=== PATIENT | female | born 1935 | race Hispanic/Latino ===

== ENCOUNTER 2018-03-10 18:33 | Emergency (ER) | payer MEDICARE ==
[2018-03-10 20:15] VITALS: RESP 18
[2018-03-10] MEDS ORDERED: Lidocaine/Prilocaine CREAM 5GM TP ONE ×2 (20:46→21:20)
[2018-03-10 21:25] LABS: BASO % 0.8 % (0.0-2.0); EOS # 0.1 K/uL (0.0-0.7); EOS % 2.1 % (0.0-4.0); HEMOGLOBIN 12.2 g/dL (12.0-16.0); LYMPH # 1.7 K/uL (1.0-4.3); LYMPH % 25.5 % (20.0-40.0); MEAN CELL VOLUME 84.3 fl (81.0-99.0); MEAN CORPUSCULAR HEMOGLOBIN 27.5 pg (27.0-31.0); MEAN CORPUSCULAR HGB CONC 32.6 g/dL (33.0-37.0); MEAN PLATELET VOLUME 9.9 fl (7.2-11.7); MONO # 0.8 K/uL (0.0-0.8); NEUT # 3.9 K/uL (1.8-7.0); NEUT % 59.6 % (50.0-75.0); RBC 4.46 Mil/uL (3.80-5.20); RED CELL DISTRIBUTION WIDTH 15.7 % (11.5-14.5); WHITE BLOOD COUNT 6.5 K/uL (4.8-10.8)
[2018-03-10 21:45] LABS: ALB/GLOB RATIO 1.1 (1.0-2.1); ALBUMIN 4.1 g/dL (3.5-5.0); ALT/SGPT 29 U/L (9-52); AST/SGOT 24 U/L (14-36); BLOOD UREA NITROGEN 17 mg/dl (7-17); CALCIUM 9.1 mg/dL (8.4-10.2); GFR AFRICAN-AMERICAN > 60; GFR NON-AFRICAN AMERICAN > 60
[2018-03-10 21:52] LABS: B-TYPE NATRIURETIC PEPTIDE 367 pg/ml (0-900)
[2018-03-10 22:02] LABS: PARTIAL THROMBOPLASTIN TIME 29.1 Seconds (25.6-37.1); PROTHROMBIN TIME 11.2 Seconds (9.8-13.1)
[2018-03-10 22:20] LABS: SQUAMOUS EPITHIAL < 1 /hpf (0-5); URINE BACTERIA RARE (<OCC); URINE BILIRUBIN NEGATIVE (NEGATIVE); URINE BLOOD LARGE (NEGATIVE); URINE CLARITY TURBID (Clear); URINE COLOR YELLOW (YELLOW); URINE GLUCOSE (UA) NEG (Normal); URINE LEUKOCYTE ESTERASE LARGE Leu/uL (Negative); URINE PROTEIN 100 mg/dL (NEGATIVE); URINE UROBILINOGEN 0.2-1.0 mg/dL (0.2-1.0)
--- NOTE | 2018-03-10 22:24 | ED PDOC ---
Lower Extremity Pain/Injury Time Seen by Provider: 03/10/18 20:18 Chief Complaint (Nursing): Abnormal Skin Integrity Chief Complaint (Provider): Leg laceration History Per: Patient History/Exam Limitations: no limitations Current Symptoms Are (Timing): Still Present Additional History Per: Family (son) Additional Complaint(s): 82 year old female, with past medical history of HTN, presented to ED with laceration. Patient reported that she was walking too close to her cat cage which had a wire sticking out and cut her right leg. In addition to this, son reports that for the last 10 days, patient has had intermittent bleeding in the left nostril for unknown reason. She has also been taking her husbands blood pressure medications for the past year because her PCP . All history was provided by son. PCP: none provided Past Medical History Reviewed: Historical Data, Nursing Documentation, Vital Signs Vital Signs: Last Vital Signs Temp 97.5 F L 03/10/18 19:39 Pulse 71 03/10/18 20:14 Resp 18 03/10/18 20:14 BP 153/85 H 03/10/18 20:14 Pulse Ox 97 03/10/18 19:39 - Medical History PMH: Asthma, HTN, Hypercholesterolemia Denies: Arthritis, CHF, COPD, Hypothyroidism, Chronic Kidney Disease, Rheumatoid Arthritis - Surgical History Surgical History: Appendectomy Denies: CABG - Family History Family History: States: Unknown Family Hx - Social History Current smoker - smoking cessation education provided: No Alcohol: None Drugs: Denies - Home Medications Home Medications: Ambulatory Orders Medication Instructions Recorded Carvedilol [Coreg] 3.125 mg PO BID 03/18/16 Fluticasone/Salmeterol 250/50 1 puff INH BID 03/18/16 [Advair Diskus 250/50] Montelukast Sodium [Singulair] 10 mg PO DAILY 03/18/16 Ranitidine HCl [Zantac] 150 mg PO DAILY 03/18/16 Acetaminophen [Tylenol 325mg tab] 650 mg PO Q6 PRN #0 tab 03/20/16 Amoxicillin/Clavulanate [Augmentin 1 tab PO BID #10 tab 03/10/18 875 MG-125 MG] Carvedilol [Coreg] 3.125 mg PO BID #30 tab 03/10/18 Montelukast [Singulair] 10 mg PO DAILY #30 tab 03/10/18 Nitrofurantoin Macrocrystals 1 cap PO BID #14 cap 03/10/18 [Macrobid] - Allergies Allergies/Adverse Reactions: Allergies Allergy/AdvReac Type Severity Reaction Status Date / Time No Known Allergies Allergy Verified 03/10/18 19:39 Review of Systems ROS Statement: Except As Marked, All Systems Reviewed And Found Negative ENT: Positive for: Nose Discharge (Nose bleed) Musculoskeletal: Positive for: Leg Pain (Leg laceration) Physical Exam - Reviewed Nursing Documentation Reviewed: Yes Vital Signs Reviewed: Yes - Physical Exam Appears: Positive for: Non-toxic, No Acute Distress (slim petite habitus) Skin: Positive for: Warm, Dry, Pallor Eye Exam: Positive for: EOMI, PERRL ENT: Negative for: Sinus Pain/Drainage (active bleeding), Other (bloody cotton ball in left nare, erythematous turbinates, more dried blood) Neck: Positive for: Painless ROM, Supple Cardiovascular/Chest: Positive for: Regular Rate, Rhythm. Negative for: Murmur Respiratory: Positive for: Normal Breath Sounds. Negative for: Wheezing, Respiratory Distress Gastrointestinal/Abdominal: Positive for: Soft. Negative for: Tenderness Back: Positive for: Normal Inspection. Negative for: Muscle Spasm Extremity: Positive for: Tenderness (tenderness to palpation to RLE anterior tibia area near wound), Deformity (irregular flap skin tear, flap necrosis to RLE), Other (base of wound is moist, no erythema surrounding RLE wound). Negative for: Swelling (active bleeding, surrounding redness) Lymphatic: Negative for: Adenopathy Neurologic/Psych: Positive for: Alert. Negative for: Motor/Sensory Deficits Comments: RIGHT lower extremity wound, lower anterior: ~5cm flap wound, flap with ecchymosis and very this and friable at edges, subcutaneous fat visualized with good blood flow. - Laboratory Results Result Diagrams: 03/10/18 21:10 03/10/18 21:10 - ECG O2 Sat by Pulse Oximetry: 97 (RA) Pulse Ox Interpretation: Normal Medical Decision Making Medical Decision Making: Initial Impression: RLE skin avulsion/laceration, HTN, left epistaxis Initial Plan: ECG ED Urine dipstick X-ray Lidocaine 1 applic TP once Urine culture Urinalysis Labs c/w UTI and possible hypothyroid. Laceration repaired. Scribe Attestation: Documented by Cole Aldridge acting as a scribe for Madie Raya MD. Provider Scribe Attestation: All medical record entries made by the Scribe were at my direction and personally dictated by me. I have reviewed the chart and agree that the record accurately reflects my personal performance of the history, physical exam, medical decision making, and the department course for this patient. I have also personally directed, reviewed, and agree with the discharge instructions and disposition. Procedures - Laceration/Wound Repair Right Anterior Wound Length (cm): 5 (RIGHT anterior lower extremity) Wound's Depth, Shape: superficial, flap, contused tissue Wound Explored: clean Irrigated w/ Saline (ccs): 250 Betadine Prep?: Yes Anesthesia: 1% Lidocaine (after EMLA) Volume Anesthetic (ccs): 2 Wound Repaired With: Sutures, Steri-strips Suture Size/Type: 4:0, proline Number of Sutures: 5 Wound Complexity: Simple Disposition - Clinical Impression Clinical Impression: HTN (hypertension), Laceration of leg, High serum thyroid stimulating hormone ( TSH), UTI (urinary tract infection) Counseled Patient/Family Regarding: Studies Performed, Diagnosis, Need For Followup, Rx Given - Disposition Referrals: Kayden Lehman MD [Staff Provider] - (WOUND CHECK IN 48 HOURS SUTURE REMOVAL IN 7-10 DAYS ALSO FOLLOW UP WITH DR LEHMAN FOR HYPERTENSION MEDICATION AND FURTHER EVALUATION OF POSSIBLE HYPOTHYROID.) Disposition: Routine/Home Disposition Time: 23:26 Condition: IMPROVED Prescriptions: Amoxicillin/Clavulanate [Augmentin 875 MG-125 MG] 1 tab PO BID #10 tab Carvedilol [Coreg] 3.125 mg PO BID #30 tab Montelukast [Singulair] 10 mg PO DAILY #30 tab Nitrofurantoin Macrocrystals [Macrobid] 1 cap PO BID #14 cap Instructions: High Blood Pressure (DC), Laceration Repair, Urinary Tract Infection, Adult (DC)
[2018-03-10] MEDS ORDERED: Lidocaine 1% 20 MG/2 ML PF AMP ONE (22:55)
[2018-03-10 23:54] VITALS: BP 153/85; PULSE 71; TEMP 97.8; O2SAT 97
--- NOTE | 2018-03-11 09:54 | RAD ---
HISTORY: hypertension COMPARISON: Chest radiographs 03/19/2016. TECHNIQUE: Chest PA and lateral FINDINGS: LUNGS: No definite acute infiltrate is appreciate pulmonary fibrotic changes appear bilateral and diffuse once again and are not significantly changed. Over left of costochondral calcifications is again seen at the inferior right lung zone with fibrotic lung. Hyperinflation suggests COPD once again. Yes PLEURA: No significant pleural effusion identified. No pneumothorax apparent. Right greater than left apical pleural thickening again identified. Fibrotic changes blunt the right costophrenic sulcus. CARDIOVASCULAR: Stable cardiomediastinal silhouette. OSSEOUS STRUCTURES: No significant abnormalities. VISUALIZED UPPER ABDOMEN: Normal. OTHER FINDINGS: None. IMPRESSION: COPD with pulmonary fibrotic changes reiterated. No acute infiltrate or pleural effusion is evident bilaterally. Fibrotic changes about the right costophrenic sulcus.
--- NOTE | 2018-03-14 12:17 | CARD ---
APPROVED REPORT EKG Measurement Heart [id number] <Conclusion> Normal sinus rhythm Minimal voltage criteria for LVH, may be normal variant Borderline ECG
== END 2018-03-10 23:55 | disposition home or self-care (01) ==
LOC: H.ER 18:33
DX: S81.811A Laceration without foreign body, right lower leg, initial encounter (principal); N39.0 Urinary tract infection, site not specified; R94.6 Abnormal results of thyroid function studies; I10 Essential (primary) hypertension; J44.9 Chronic obstructive pulmonary disease, unspecified; W22.8XXA Striking against or struck by other objects, initial encounter

== ENCOUNTER 2018-07-21 19:19 | Inpatient (IN) | payer MEDICARE ==
[2018-07-21] MEDS ORDERED: Iohexol 240 (50 ml) PO STA (19:55)
[2018-07-21] MEDS ORDERED: Sodium Chloride 0.9% 500 ML IV STA (19:56)
--- NOTE | 2018-07-21 21:07 | ED PDOC ---
HPI: Abdomen Time Seen by Provider: 07/21/18 19:40 Chief Complaint (Nursing): Abdominal Pain Chief Complaint (Provider): Abdominal Pain History Per: Patient History/Exam Limitations: no limitations Onset/Duration Of Symptoms: Days (x7) Current Symptoms Are (Timing): Still Present Additional Complaint(s): 83 y/o female with a PMHx of HTN and asthma presents to the ED for evaluation of right sided abdominal pain, ongoing for one week. Patient reports pain has been worsening since onset and is associated with lack of appetite, poor PO intake, dysuria, frequency, nausea and one episode of shaking chills today. Denies hematuria, vomiting, fever, diarrhea and constipation. PMD: Kayden Lehman Past Medical History Reviewed: Historical Data, Nursing Documentation, Vital Signs Vital Signs: Last Vital Signs Temp 97.8 F 07/25/18 09:00 Pulse 75 07/25/18 09:03 Resp 18 07/25/18 09:00 BP 155/74 H 07/25/18 09:03 Pulse Ox 97 07/25/18 09:00 - Medical History PMH: Asthma, HTN, Hypercholesterolemia Denies: Arthritis, CHF, COPD, Hypothyroidism, Chronic Kidney Disease, Rheumatoid Arthritis - Surgical History Surgical History: Appendectomy Denies: CABG - Family History Family History: States: No Known Family Hx - Social History Current smoker - smoking cessation education provided: No Alcohol: None Drugs: Denies - Home Medications Home Medications: Ambulatory Orders Medication Instructions Recorded Albuterol HFA [Ventolin HFA 90 2 inh INH PRN PRN 07/22/18 mcg/actuation (8 g)] Carvedilol [Coreg] 3.125 mg PO BID 07/22/18 Loratadine [Claritin] 10 mg PO DIALW PRN 07/22/18 Montelukast [Singulair] 10 mg PO HS 07/22/18 Albuterol/Ipratropium [Duoneb 3 3 ml INH RQ6 PRN neb 07/25/18 mg/0.5 mg (3 ml) UD] cefTRIAXone 1 gm [Rocephin 1 gram 1 gm IVPB DAILY 8 Days #8 bag 07/25/18 IVPB] - Allergies Allergies/Adverse Reactions: Allergies Allergy/AdvReac Type Severity Reaction Status Date / Time No Known Allergies Allergy Verified 03/10/18 19:39 Review of Systems ROS Statement: Except As Marked, All Systems Reviewed And Found Negative Constitutional: Positive for: Chills (shaking). Negative for: Fever Gastrointestinal: Positive for: Nausea, Abdominal Pain, Other (lack of appetite , poor PO intake). Negative for: Vomiting, Diarrhea, Constipation Genitourinary Female: Positive for: Dysuria, Frequency. Negative for: Hematuria Physical Exam - Reviewed Nursing Documentation Reviewed: Yes Vital Signs Reviewed: Yes - Physical Exam Appears: Positive for: Uncomfortable (and tired), In Acute Distress (painful) Head Exam: Positive for: ATRAUMATIC, NORMOCEPHALIC Skin: Positive for: Warm, Dry Eye Exam: Positive for: EOMI, PERRL ENT: Positive for: Other (Dry Mucous Membranes) Neck: Positive for: Painless ROM, Supple Cardiovascular/Chest: Positive for: Tachycardia Respiratory: Positive for: Normal Breath Sounds. Negative for: Respiratory Distress Gastrointestinal/Abdominal: Positive for: Bowel Sounds (Hyperactive), Tenderness (in the RUQ, RLQ and Epigastric area), Guarding (Voluntary guarding in the right abdomen ). Negative for: Mass, Rebound Back: Positive for: Normal Inspection. Negative for: Decreased ROM Extremity: Positive for: Normal ROM. Negative for: Deformity Lymphatic: Negative for: Adenopathy Neurologic/Psych: Positive for: Alert, Oriented (x2) - Laboratory Results Result Diagrams: 07/23/18 08:19 07/23/18 08:19 - ECG O2 Sat by Pulse Oximetry: 99 (RA) Pulse Ox Interpretation: Normal Medical Decision Making Medical Decision Making: Time: 2037 Impression: Abdominal Pain Differentials include but not limited to gastritis, hepatitis, pancreatitis, cholecystitis and appendicitis Plan: -- EKG -- Glucose, POC -- Sodium Chloride IV 500 mls/hr -- Iohexol 50 ml PO -- Zofran Inj 4 mg IVP -- Blood Culture -- Urine Culture -- IV Insertion -- ED Rectal Temp -- Glucose, Blood, POC -- Urinalysis -- US Abdomen Limited Time: 2099 Plan: -- VBG -- EKG -- CMP -- Free T4 -- Lipase -- Magnesium -- Phosphorus -- T3 -- TSH -- CBC with differentials -- PTT -- Prothrombin Time 2350 Abdomen US FINDINGS: Liver: Diffusely increased echogenicity. No mass. No intrahepatic bile duct dilation. Gallbladder: Contracted. No gallstones. Negative sonographic Merino's sign Common bile duct: Unremarkable as visualized. No stones. No dilation. Measures 0.3 cm. Pancreas: Unremarkable as visualized. Right kidney: Unremarkable. No stones. No solid mass. No hydronephrosis. IMPRESSION: Sonographic evidence of diffuse hepatic steatosis. Otherwise no acute findings. Dictated and Authenticated by: Al Herrera MD 07/21/2018 11:50 PM Eastern Time ([place] & [place]) [address] Mireles by me pending abd/pelvis CT and reevaluation. Scribe Attestation: Documented by Georgette Bravo acting as a scribe for Yoselyn Clark MD. Provider Scribe Attestation: All medical record entries made by the Scribe were at my direction and personally dictated by me. I have reviewed the chart and agree that the record accurately reflects my personal performance of the history, physical exam, medical decision making, and the department course for this patient. I have also personally directed, reviewed, and agree with the discharge instructions and disposition. Disposition - Clinical Impression Clinical Impression: Abdominal pain - Disposition Disposition: Transfer of Care Disposition Time: 00:00 Condition: FAIR
[2018-07-21 21:09] LABS: BASO # 0.1 K/uL (0.0-0.2); BASO % 0.3 % (0.0-2.0); EOS % 0.2 % (0.0-4.0); HEMOGLOBIN 11.1 g/dL (12.0-16.0); LYMPH # 0.6 K/uL (1.0-4.3); LYMPH % 2.3 % (20.0-40.0); MEAN CELL VOLUME 81.7 fl (81.0-99.0); MEAN CORPUSCULAR HEMOGLOBIN 26.5 pg (27.0-31.0); MEAN CORPUSCULAR HGB CONC 32.4 g/dL (33.0-37.0); MEAN PLATELET VOLUME 8.7 fl (7.2-11.7); MONO # 1.5 K/uL (0.0-0.8); MONO % 5.9 % (0.0-10.0); NEUT # 23.3 K/uL (1.8-7.0); NEUT % 91.3 % (50.0-75.0); PLATELET COUNT 438 K/uL (130-400); RBC 4.18 Mil/uL (3.80-5.20); RED CELL DISTRIBUTION WIDTH 16.9 % (11.5-14.5); WHITE BLOOD COUNT 25.6 K/uL (4.8-10.8)
[2018-07-21 21:11] LABS: VENOUS BLOOD GAS BASE EXCESS 6.1 mmol/L (0.0-2.0); VENOUS BLOOD GAS PCO2 46 mmHg (40-60); VENOUS BLOOD GAS PO2 32 mm/Hg (30-55); VENOUS BLOOD PH 7.44 (7.32-7.43)
[2018-07-21 21:16] LABS: SQUAMOUS EPITHIAL 1 /hpf (0-5); URINE BACTERIA MOD (<OCC); URINE BILIRUBIN NEGATIVE (NEGATIVE); URINE BLOOD SMALL (NEGATIVE); URINE CLARITY CLOUDY (Clear); URINE COLOR AMBER (YELLOW); URINE GLUCOSE (UA) NEG (Normal); URINE PROTEIN 100 mg/dL (NEGATIVE)
[2018-07-21 21:18] LABS: INR 1.2
[2018-07-21 21:19] LABS: ALB/GLOB RATIO 0.8 (1.0-2.1); ALBUMIN 3.4 g/dL (3.5-5.0); ALT/SGPT 40 U/L (9-52); AST/SGOT 45 U/L (14-36); BLOOD UREA NITROGEN 19 mg/dl (7-17); CALCIUM 8.5 mg/dL (8.4-10.2); GFR NON-AFRICAN AMERICAN > 60; LIPASE 37 U/L (23-300)
[2018-07-21 21:20] LABS: PARTIAL THROMBOPLASTIN TIME 25.1 Seconds (25.6-37.1)
[2018-07-21 21:22] LABS: URINE LEUKOCYTE ESTERASE LARGE Leu/uL (Negative)
[2018-07-21] MEDS ORDERED: Potassium & Sodium Phosphate PO STA (21:44)
[2018-07-21] MEDS ORDERED: cefTRIAXone (Rocephin) 1 gm Inj ONE (21:55)
[2018-07-21 22:07] LABS: LYMPHOCYTE 2 % (20-50); MONOCYTE 5 % (0-10); NEUTROPHIL 93 % (42-75); PLATELET ESTIMATE INCREASED (NORMAL); TOTAL CELLS COUNTED 100
[2018-07-21 22:08] LABS: ANISOCYTOSIS SLIGHT; HYPOCHROMIC SLIGHT
[2018-07-21 23:01] LABS: T3 1.17 nmol/L (1.49-2.60)
--- NOTE | 2018-07-22 00:25 | ED PDOC ---
- Laboratory Results Result Diagrams: 07/21/18 21:00 07/21/18 21:00 - ECG O2 Sat by Pulse Oximetry: 99 (RA) Pulse Ox Interpretation: Normal Medical Decision Making Medical Decision Makin Patient endorsed to me by Dr. Clark pending abd/pelvis CT and reevaluation. 0149 Abd/Pelvis CT FINDINGS: Lung bases: Prominent interstitial markings in the lung bases bilaterally. Right lung base more nodular opacities and partially visualized consolidation in the inferior aspect of the right middle lobe may be infectious or inflammatory process, either acute or chronic. ABDOMEN: Liver: Unremarkable. No mass. Gallbladder and bile ducts: Unremarkable. No calcified stones. No ductal dilation. Pancreas: Unremarkable. No mass. No ductal dilation. Spleen: Unremarkable. No splenomegaly. Adrenals: Unremarkable. No mass. Kidneys and ureters: Right renal pelvis 1.9 cm calcification with moderate hydronephrosis. Stomach and bowel: Diverticulosis is most pronounced in the sigmoid colon. No obstruction. No mucosal thickening. PELVIS: Appendix: No findings to suggest acute appendicitis. Bladder: Unremarkable. No mass. Reproductive: Unremarkable as visualized. ABDOMEN and PELVIS: Intraperitoneal space: Unremarkable. No free air. No significant fluid collection. Bones/joints: No acute fracture. No dislocation. Soft tissues: Left fat-containing inguinal hernia. Vasculature: Moderate atherosclerotic calcifications are present in the abdominal aorta. No abdominal aortic aneurysm. Lymph nodes: Unremarkable. No enlarged lymph nodes. Other findings: Right pelvic 4.6 x 3.7 x 5.4 cm cyst is probably benign. IMPRESSION: 1. Right renal pelvis 1.9 cm calcification with moderate hydronephrosis. A mild obstructive process is not excluded. 2. Right pelvic 4.6 x 3.7 x 5.4 cm cyst is probably benign. 3. Prominent interstitial markings in the lung bases bilaterally. Right lung base more nodular opacities and partially visualized consolidation in the inferior aspect of the right middle lobe may be infectious or inflammatory process, either acute or chronic. Dictated and Authenticated by: Al Herrera MD 07/22/2018 1:49 AM Eastern Time ([place] & [place]) 0200 Patient will be admitted for further treatment for acute paranephritis. Case referred to Dr. Lehman, patient's PMD. Scribe Attestation: Documented by Yocasta Haines, acting as a scribe for Bladimir Mireles MD. Provider Scribe Attestation: All medical record entries made by the Scribe were at my direction and personally dictated by me. I have reviewed the chart and agree that the record accurately reflects my personal performance of the history, physical exam, medical decision making, and the department course for this patient. I have also personally directed, reviewed, and agree with the discharge instructions and disposition. Disposition Discussed With : Kayden Lehman - Clinical Impression Clinical Impression: Pyelonephritis - POA Present On Arrival: None - Disposition Disposition: Admitted as In-Patient Disposition Time: 01:45 Condition: FAIR
[2018-07-22] MEDS ORDERED: Albuterol HFA 90 mcg/actuation (8 g) INH PRN (06:04)
[2018-07-22 06:42] LABS: BASO # 0.1 K/uL (0.0-0.2); BASO % 0.3 % (0.0-2.0); EOS # 0.1 K/uL (0.0-0.7); EOS % 0.6 % (0.0-4.0); HEMOGLOBIN 10.6 g/dL (12.0-16.0); LYMPH # 1.6 K/uL (1.0-4.3); LYMPH % 8.7 % (20.0-40.0); MEAN CELL VOLUME 81.3 fl (81.0-99.0); MEAN CORPUSCULAR HEMOGLOBIN 26.4 pg (27.0-31.0); MEAN CORPUSCULAR HGB CONC 32.5 g/dL (33.0-37.0); MEAN PLATELET VOLUME 8.3 fl (7.2-11.7); MONO # 1.6 K/uL (0.0-0.8); MONO % 8.6 % (0.0-10.0); NEUT # 14.9 K/uL (1.8-7.0); NEUT % 81.8 % (50.0-75.0); NRBC % 0.1 % (0.0-0.0); RBC 4.02 Mil/uL (3.80-5.20); RED CELL DISTRIBUTION WIDTH 16.9 % (11.5-14.5); WHITE BLOOD COUNT 18.2 K/uL (4.8-10.8)
[2018-07-22] MEDS: Dextrose 5%/0.9% NS 1,000 ML IV SCH ×3 (06:44→21:30)
[2018-07-22 07:15] LABS: BLOOD UREA NITROGEN 14 mg/dl (7-17); CALCIUM 7.9 mg/dL (8.4-10.2); GFR NON-AFRICAN AMERICAN > 60
[2018-07-22] MEDS: Enoxaparin 40 mg Syringe SC SCH (09:00)
--- NOTE | 2018-07-22 09:09 | CARD ---
APPROVED REPORT Date of service: 07/21/2018 <Conclusion> Normal sinus rhythm with sinus arrhythmia Possible Left atrial enlargement Borderline ECG
[2018-07-22] MEDS ORDERED: Potassium Chloride 20 mEq ER Tab PO ONE (09:13)
--- NOTE | 2018-07-22 09:42 | US ---
Date of service: 07/21/2018 HISTORY: RUQ pain COMPARISON: None. TECHNIQUE: Grayscale imaging was performed. FINDINGS: LIVER: Measures 12.1 cm in length. Normal echogenicity of the liver parenchyma. No mass. No intrahepatic bile duct dilatation. GALLBLADDER: Unremarkable. No gallstones. COMMON BILE DUCT: Measures 4.0 mm. No stones. No dilatation. PANCREAS: Unremarkable as visualized. No mass. No ductal dilatation. RIGHT KIDNEY: Measures 10.5 cm in length. Normal echogenicity. There is a 2.0 x 2.2 cm stone in the renal pelvis and mild fullness in the collecting system no mass, or hydronephrosis. AORTA: No aneurysmal dilatation. IVC: Unremarkable. OTHER FINDINGS: None . IMPRESSION: 2.2 cm stone in the right renal pelvis and mild fullness in the collecting system. No cholelithiasis or biliary dilatation.
[2018-07-22 10:03] LABS: ALB/GLOB RATIO 0.8 (1.0-2.1); ALBUMIN 2.7 g/dL (3.5-5.0); ALT/SGPT 32 U/L (9-52); AMYLASE 56 U/L (30-110); AST/SGOT 62 U/L (14-36); BILIRUBIN,DIRECT 0.2 mg/ml (0.0-0.4); LIPASE 12 U/L (23-300)
[2018-07-22 10:07] LABS: INR 1.2; PROTHROMBIN TIME 12.9 Seconds (9.8-13.1)
[2018-07-22 10:10] LABS: PARTIAL THROMBOPLASTIN TIME 32.5 Seconds (25.6-37.1)
--- NOTE | 2018-07-22 12:39 | CT ---
PROCEDURE: CT Abdomen and Pelvis without IV contrast. HISTORY: abd pain COMPARISON: Limited abdominal ultrasound performed 07/21/18 TECHNIQUE: Contiguous axial images of the abdomen and pelvis. Oral contrast was administered. No IV contrast given. Coronal and Sagittal reformats generated and reviewed. Radiation dose: Total exam DLP = 186.48 mGy-cm. This CT exam was performed using one or more of the following dose reduction techniques: Automated exposure control, adjustment of the mA and/or kV according to patient size, and/or use of iterative reconstruction technique. FINDINGS: There is limited evaluation of the solid organs without the administration of IV contrast. LOWER THORAX: Bibasilar atelectasis. Prominent interstitial markings noted bilaterally. Nodular opacities/consolidation involving the inferior aspect right middle lobe. Small pericardial effusion. Partially imaged cardiomegaly. Aortic valve calcifications, partially imaged. LIVER: Unremarkable unenhanced appearance. GALLBLADDER AND BILE DUCTS: Unremarkable unenhanced appearance. PANCREAS: Atrophy. SPLEEN: Unremarkable unenhanced appearance. ADRENALS: Unremarkable unenhanced appearance. KIDNEYS AND URETERS: Moderate right-sided hydronephrosis. 0.8 x 2.1 cm calcification, right renal pelvis. No left-sided hydronephrosis or obstructing renal calculus. BLADDER: The urinary bladder appears unremarkable. REPRODUCTIVE: Uterus is present. APPENDIX: The appendix appears within normal limits of caliber. No secondary signs of acute appendicitis. BOWEL: The stomach is nondistended. The bowel loops appear within normal limits of caliber without evidence of intestinal obstruction. Diverticulosis most significantly involving the sigmoid colon. Wall thickening of small bowel loop/ileum; correlate clinically for possibility of enteritis. PERITONEUM: No significant free fluid. No definite free air. LYMPH NODES: No bulky lymphadenopathy identified. VASCULATURE: Moderate atherosclerotic calcifications of the aorta and branches. No aortic aneurysm. BONES: Degenerative changes. Osseous demineralization. OTHER FINDINGS: Large fat containing left inguinal hernia. 4.6 x 3.7 x 5.4 cm right pelvic cyst. IMPRESSION: 4.6 x 3.7 x 5.4 cm right pelvic cyst. Finding may be ovarian in etiology. Recommend further evaluation with pelvic ultrasound. Moderate right-sided hydronephrosis and 0.8 x 2.1 cm calcification, right renal pelvis. Wall thickening of small bowel loop/ileum; correlate clinically for possibility of enteritis. Bibasilar atelectasis. Prominent interstitial markings noted bilaterally. Nodular opacities/consolidation involving the inferior aspect right middle lobe. Small pericardial effusion. Partially imaged cardiomegaly. Preliminary impression was provided by virtual radiologic. Study marked for PA review.
--- NOTE | 2018-07-22 13:55 | CP.PCM.HP ---
History of Present Illness - History of Present Illness History of Present Illness: 83 y/o female with a PMHx of HTN and asthma presents to the ED with c/o of right sided abdominal pain x 1 week. Patient reports pain has been worsening since onset and is associated with lack of appetite, poor PO intake, dysuria, frequency, nausea and one episode of shaking chills today. Denies hematuria, vomiting, fever, diarrhea and constipation. C/O loss of weight secondary to poor appetite and pain in the abdomen. Present on Admission - Present on Admission Any Indicators Present on Admission: No Review of Systems - Constitutional Constitutional: Malaise, Weight Loss, Weakness - EENT Eyes: As Per HPI - Cardiovascular Cardiovascular: As Per HPI - Respiratory Respiratory: As Per HPI - Genitourinary Genitourinary: Dysuria - Musculoskeletal Musculoskeletal: As Per HPI - Neurological Neurological: As Per HPI - Psychiatric Psychiatric: As Per HPI - Endocrine Endocrine: As Per HPI Past Patient History - Past Medical History & Family History Past Medical History?: Yes - Past Social History Smoking Status: Never Smoked - CARDIAC Hx Cardiac Disorders: Yes Hx Congestive Heart Failure: No Hx Hypercholesterolemia: Yes Hx Hypertension: Yes - PULMONARY Hx Respiratory Disorders: Yes Hx Asthma: Yes Hx Chronic Obstructive Pulmonary Disease (COPD): No - NEUROLOGICAL Hx Neurological Disorder: No HX Cerebrovascular Accident: No - HEENT Hx HEENT Problems: Yes Hx Cataracts: Yes Hx Deafness: Yes - RENAL Hx Chronic Kidney Disease: No Hx Dialysis: No Hx Kidney Stones: No Hx Neurogenic Bladder: No Hx Pyelonephritis: No Hx Renal (Kidney) Cancer: No Hx Renal Failure: No - ENDOCRINE/METABOLIC Hx Endocrine Disorders: No Hx Adrenal Cancer: No Hx Diabetes Insipidus: No Hx Diabetes Mellitus Type 1: No Hx Diabetes Mellitus Type 2: No Hx Hyperthyroidism: No Hx Hypothyroidism: No Hx Systemic Lupus Erythematosus: No - HEMATOLOGICAL/ONCOLOGICAL Hx Blood Disorders: No Hx AIDS: No Hx Hepatitis C: No Hx Human Immunodeficiency Virus (HIV): No - INTEGUMENTARY Hx Dermatological Problems: No - MUSCULOSKELETAL/RHEUMATOLOGICAL Hx Musculoskeletal Disorders: Yes Hx Falls: Yes (2 yrs ago) Hx Fractures: Yes (sacral fx 2 yrs ago) - GASTROINTESTINAL Hx Gastrointestinal Disorders: Yes Hx Gastroesophageal Reflux: Yes - GENITOURINARY/GYNECOLOGICAL Hx Genitourinary Disorders: No - PSYCHIATRIC Hx Psychophysiologic Disorder: No Hx Substance Use: No - SURGICAL HISTORY Hx Surgeries: Yes Hx Coronary Artery Bypass Graft: No Hx Herniorrhaphy: Yes - ANESTHESIA Hx Anesthesia: Yes Hx Anesthesia Reactions: No Hx Malignant Hyperthermia: No Meds Allergies/Adverse Reactions: Allergies Allergy/AdvReac Type Severity Reaction Status Date / Time No Known Allergies Allergy Verified 03/10/18 19:39 Physical Exam - Constitutional Appears: Cachectic, Chronically Ill - Head Exam Head Exam: ATRAUMATIC, NORMAL INSPECTION, NORMOCEPHALIC - Eye Exam Eye Exam: Normal appearance - ENT Exam ENT Exam: Mucous Membranes Moist - Respiratory Exam Respiratory Exam: Decreased Breath Sounds - Cardiovascular Exam Cardiovascular Exam: REGULAR RHYTHM, +S1, +S2 - GI/Abdominal Exam GI & Abdominal Exam: Tenderness - Extremities Exam Extremities exam: Positive for: normal inspection - Neurological Exam Neurological exam: Alert, CN II-XII Intact, Oriented x3 Additional comments: severe debility - Psychiatric Exam Psychiatric exam: Normal Affect - Skin Skin Exam: Normal Color, Pallor Results - Vital Signs Recent Vital Signs: Last Vital Signs Temp 97.6 F 07/22/18 08:01 Pulse 64 07/22/18 08:59 Resp 18 07/22/18 08:01 BP 112/59 L 07/22/18 08:59 Pulse Ox 96 07/22/18 08:01 - Labs Result Diagrams: 07/22/18 06:30 07/22/18 06:30 Labs: Laboratory Results - last 24 hr 07/21/18 07/21/18 07/21/18 20:25 20:38 21:00 WBC 25.6 H D RBC 4.18 Hgb 11.1 L Hct 34.1 MCV 81.7 D MCH 26.5 L MCHC 32.4 L RDW 16.9 H Plt Count 438 H D MPV 8.7 Neut % (Auto) 91.3 H Lymph % (Auto) 2.3 L [place] % (Auto) 5.9 Eos % (Auto) 0.2 Baso % (Auto) 0.3 Neut # (Auto) 23.3 H Lymph # (Auto) 0.6 L [place] # (Auto) 1.5 H Eos # (Auto) 0.0 Baso # (Auto) 0.1 Neutrophils % (Manual) 93 H Lymphocytes % (Manual) 2 L Monocytes % (Manual) 5 Platelet Estimate Increased H Hypochromasia (manual) Slight Anisocytosis (manual) Slight PT INR APTT pO2 VBG pH VBG pCO2 VBG HCO3 VBG Total CO2 VBG O2 Sat (Calc) VBG Base Excess VBG Potassium Glucose Lactate FiO2 Sodium Potassium Chloride Carbon Dioxide Anion Gap BUN Creatinine Est GFR ( Amer) Est GFR (Non-Af Amer) POC Glucose (mg/dL) 120 H Random Glucose Calcium Phosphorus Magnesium Total Bilirubin Direct Bilirubin AST ALT Alkaline Phosphatase Total Protein Albumin Globulin Albumin/Globulin Ratio Amylase Lipase Carcinoembryonic Ag Vitamin B12 Free T4 Total T3 TSH 3rd Generation Venous Blood Potassium Urine Color Anny Urine Clarity Cloudy Urine pH 6.0 Ur Specific [place] 1.015 Urine Protein 100 Urine Glucose (UA) Neg Urine Ketones Negative Urine Blood Small Urine Nitrate Negative Urine Bilirubin Negative Urine Urobilinogen 2.0 H Ur Leukocyte Esterase Large Urine RBC (Auto) 13 H Urine Microscopic WBC 191 H Ur Squamous Epith Cells 1 Urine Bacteria Mod H 07/21/18 07/21/18 07/21/18 21:00 21:00 21:00 WBC RBC Hgb Hct MCV MCH MCHC RDW Plt Count MPV Neut % (Auto) Lymph % (Auto) [place] % (Auto) Eos % (Auto) Baso % (Auto) Neut # (Auto) Lymph # (Auto) [place] # (Auto) Eos # (Auto) Baso # (Auto) Neutrophils % (Manual) Lymphocytes % (Manual) Monocytes % (Manual) Platelet Estimate Hypochromasia (manual) Anisocytosis (manual) PT 13.0 INR 1.2 APTT 25.1 L pO2 VBG pH VBG pCO2 VBG HCO3 VBG Total CO2 VBG O2 Sat (Calc) VBG Base Excess VBG Potassium Glucose Lactate FiO2 Sodium 137 Potassium 3.4 L Chloride 97 L Carbon Dioxide 29 Anion Gap 14 BUN 19 H Creatinine 0.6 L Est GFR ( Amer) > 60 Est GFR (Non-Af Amer) > 60 POC Glucose (mg/dL) Random Glucose 119 H Calcium 8.5 Phosphorus 2.4 L Magnesium 2.2 Total Bilirubin 0.6 Direct Bilirubin AST 45 H D ALT 40 Alkaline Phosphatase 222 H D Total Protein 7.6 Albumin 3.4 L Globulin 4.2 H Albumin/Globulin Ratio 0.8 L Amylase Lipase 37 Carcinoembryonic Ag Vitamin B12 Free T4 1.93 Total T3 1.17 L TSH 3rd Generation 4.00 Venous Blood Potassium Urine Color Urine Clarity Urine pH Ur Specific [place] Urine Protein Urine Glucose (UA) Urine Ketones Urine Blood Urine Nitrate Urine Bilirubin Urine Urobilinogen Ur Leukocyte Esterase Urine RBC (Auto) Urine Microscopic WBC Ur Squamous Epith Cells Urine Bacteria 07/21/18 07/22/18 07/22/18 21:08 06:30 06:30 WBC 18.2 H RBC 4.02 Hgb 10.6 L Hct 32.7 L MCV 81.3 MCH 26.4 L MCHC 32.5 L RDW 16.9 H Plt Count 477 H MPV 8.3 Neut % (Auto) 81.8 H Lymph % (Auto) 8.7 L [place] % (Auto) 8.6 Eos % (Auto) 0.6 Baso % (Auto) 0.3 Neut # (Auto) 14.9 H Lymph # (Auto) 1.6 [place] # (Auto) 1.6 H Eos # (Auto) 0.1 Baso # (Auto) 0.1 Neutrophils % (Manual) Lymphocytes % (Manual) Monocytes % (Manual) Platelet Estimate Hypochromasia (manual) Anisocytosis (manual) PT INR APTT pO2 32 VBG pH 7.44 H VBG pCO2 46 VBG HCO3 28.8 VBG Total CO2 32.6 H VBG O2 Sat (Calc) 65.5 H VBG Base Excess 6.1 H VBG Potassium 3.2 L Glucose 127 H Lactate 1.0 FiO2 21.0 Sodium 132.0 137 Potassium 3.5 L Chloride 99.0 101 Carbon Dioxide 29 Anion Gap 11 BUN 14 Creatinine 0.5 L Est GFR ( Amer) > 60 Est GFR (Non-Af Amer) > 60 POC Glucose (mg/dL) Random Glucose 99 Calcium 7.9 L Phosphorus 3.4 Magnesium 2.2 Total Bilirubin Direct Bilirubin AST ALT Alkaline Phosphatase Total Protein Albumin Globulin Albumin/Globulin Ratio Amylase Lipase Carcinoembryonic Ag Vitamin B12 Free T4 Total T3 TSH 3rd Generation Venous Blood Potassium 3.2 L Urine Color Urine Clarity Urine pH Ur Specific [place] Urine Protein Urine Glucose (UA) Urine Ketones Urine Blood Urine Nitrate Urine Bilirubin Urine Urobilinogen Ur Leukocyte Esterase Urine RBC (Auto) Urine Microscopic WBC Ur Squamous Epith Cells Urine Bacteria 07/22/18 07/22/18 09:00 09:57 WBC RBC Hgb Hct MCV MCH MCHC RDW Plt Count MPV Neut % (Auto) Lymph % (Auto) [place] % (Auto) Eos % (Auto) Baso % (Auto) Neut # (Auto) Lymph # (Auto) [place] # (Auto) Eos # (Auto) Baso # (Auto) Neutrophils % (Manual) Lymphocytes % (Manual) Monocytes % (Manual) Platelet Estimate Hypochromasia (manual) Anisocytosis (manual) PT 12.9 INR 1.2 APTT 32.5 pO2 VBG pH VBG pCO2 VBG HCO3 VBG Total CO2 VBG O2 Sat (Calc) VBG Base Excess VBG Potassium Glucose Lactate FiO2 Sodium Potassium Chloride Carbon Dioxide Anion Gap BUN Creatinine Est GFR ( Amer) Est GFR (Non-Af Amer) POC Glucose (mg/dL) Random Glucose Calcium Phosphorus Magnesium Total Bilirubin 0.3 Direct Bilirubin 0.2 AST 62 H D ALT 32 Alkaline Phosphatase 146 H D Total Protein 6.2 L Albumin 2.7 L D Globulin 3.5 Albumin/Globulin Ratio 0.8 L Amylase 56 Lipase 12 L Carcinoembryonic Ag 0.8 Vitamin B12 206 L Free T4 Total T3 TSH 3rd Generation Venous Blood Potassium Urine Color Urine Clarity Urine pH Ur Specific [place] Urine Protein Urine Glucose (UA) Urine Ketones Urine Blood Urine Nitrate Urine Bilirubin Urine Urobilinogen Ur Leukocyte Esterase Urine RBC (Auto) Urine Microscopic WBC Ur Squamous Epith Cells Urine Bacteria Assessment & Plan (1) Debility Status: Acute (2) Cachexia Status: Acute (3) Ovarian cyst Status: Acute (4) Pyelonephritis Status: Acute (5) Renal stone Status: Acute (6) UTI (urinary tract infection) Status: Acute (7) Bronchial asthma Status: Chronic Priority: Medium (8) HTN (hypertension) Status: Chronic Priority: Medium (9) Enteritis Status: Acute (10) Dehydration Status: Acute (11) Hypopotassemia Status: Acute (12) Abnormal liver enzymes Status: Acute (13) Leukocytosis Status: Acute (14) Vitamin B12 deficiency Status: Acute (15) Failure to thrive Status: Acute (16) Failure to thrive in adult Status: Acute - Assessment and Plan (Free Text) Plan: As per orders.
--- NOTE | 2018-07-22 14:34 | RAD ---
Date of service: 07/22/2018 PROCEDURE: CHEST RADIOGRAPH, 1 VIEW HISTORY: pneumonia COMPARISON: Chest radiographs 03/10/2018. FINDINGS: LUNGS: No acute interval pulmonary disease appreciable. Extensive hyperinflation and pulmonary fibrotic changes are reiterated. PLEURA: Likely pleural fibrosis blunts the right costophrenic sulcus once again versus chronic trace right pleural effusion. None is seen at the left. No pneumothorax bilaterally. CARDIOVASCULAR: Cardiomediastinal silhouette appears stable. Pulmonary artery hypertension pattern not excluded once again. OSSEOUS STRUCTURES: No significant abnormalities. VISUALIZED UPPER ABDOMEN: Normal. OTHER FINDINGS: None. IMPRESSION: Stable COPD pattern with likely fibrosis blunts the right costophrenic sulcus though minimal right pleural effusion not excluded. No significant interval change compared 03/10/2018 radiographs.
--- NOTE | 2018-07-22 16:11 | CP.PCM.PN ---
Subjective - Date & Time of Evaluation Date of Evaluation: 07/22/18 Objective - Vital Signs/Intake and Output Vital Signs (last 24 hours): Temp Pulse Resp BP Pulse Ox 97.6 F 64 18 112/59 L 96 07/22/18 08:01 07/22/18 08:59 07/22/18 08:01 07/22/18 08:59 07/22/18 08:01 - Medications Medications: Current Medications Albuterol (Ventolin Hfa 90 Mcg/Actuation (8 G)) 1 puff INH RQ6 PRN PRN Reason: Shortness of Breath Carvedilol (Coreg) 3.125 mg PO BID [facility] Last Admin: 07/22/18 08:59 Dose: 3.125 mg Cyanocobalamin (Vitamin B12 1000 Mcg/Ml Inj) 1,000 mcg IM DAILY [facility] Enoxaparin Sodium (Lovenox) 40 mg SC DAILY [facility] PRN Reason: Protocol Last Admin: 07/22/18 09:00 Dose: 40 mg Dextrose/Sodium Chloride (Dextrose 5%/0.9% Ns 1000 Ml) 1,000 mls @ 100 mls/hr IV .Q10H JONH Stop: 07/23/18 06:06 Last Admin: 07/22/18 06:44 Dose: 100 mls/hr Ceftriaxone Sodium 1 gm/ (Sodium Chloride) 100 mls @ 100 mls/hr IVPB DAILY [facility] PRN Reason: Protocol Last Admin: 07/22/18 12:26 Dose: 100 mls/hr Loratadine (Claritin) 10 mg PO DIALW PRN PRN Reason: sob Montelukast Sodium (Singulair) 10 mg PO JONH - Labs Labs: 07/22/18 06:30 07/22/18 06:30 PT 12.9 Seconds (9.8-13.1) 07/22/18 09:57 INR 1.2 07/22/18 09:57 APTT 32.5 Seconds (25.6-37.1) 07/22/18 09:57
[2018-07-22 21:33] LABS: HEPATITIS B SURFACE AG Negative (NEGATIVE)
[2018-07-22 21:39] LABS: HEPATITIS A IGM NEGATIVE (NEGATIVE); HEPATITIS B CORE AB NEGATIVE (NEGATIVE)
[2018-07-22 21:51] LABS: HEPATITIS C ANTIBODY NEGATIVE (NEGATIVE)
[2018-07-22 22:15] LABS: HEPATITIS B SURFACE AG Negative (NEGATIVE)
[2018-07-22 22:49] LABS: FOLATE 16.1 ng/mL
[2018-07-23] MEDS: Dextrose 5%/0.9% NS 1,000 ML IV SCH (02:42)
[2018-07-23 08:34] LABS: BASO % 0.2 % (0.0-2.0); EOS # 0.1 K/uL (0.0-0.7); EOS % 0.7 % (0.0-4.0); HEMOGLOBIN 10.2 g/dL (12.0-16.0); LYMPH # 1.3 K/uL (1.0-4.3); LYMPH % 13.6 % (20.0-40.0); MEAN CELL VOLUME 81.8 fl (81.0-99.0); MEAN CORPUSCULAR HEMOGLOBIN 27.3 pg (27.0-31.0); MEAN CORPUSCULAR HGB CONC 33.4 g/dL (33.0-37.0); MEAN PLATELET VOLUME 8.6 fl (7.2-11.7); MONO # 1.2 K/uL (0.0-0.8); MONO % 12.5 % (0.0-10.0); NEUT # 6.8 K/uL (1.8-7.0); NRBC % 0.1 % (0.0-0.0); RBC 3.75 Mil/uL (3.80-5.20); RED CELL DISTRIBUTION WIDTH 17.1 % (11.5-14.5); WHITE BLOOD COUNT 9.3 K/uL (4.8-10.8)
[2018-07-23 08:48] LABS: BLOOD UREA NITROGEN 8 mg/dl (7-17); CALCIUM 7.9 mg/dL (8.4-10.2); GFR NON-AFRICAN AMERICAN > 60
[2018-07-23] MEDS: Enoxaparin 40 mg Syringe SC SCH (09:56)
--- NOTE | 2018-07-23 11:27 | CP.PCM.PN ---
Subjective - Date & Time of Evaluation Date of Evaluation: 07/23/18 Time of Evaluation: 11:29 - Subjective Subjective: Patient appears frail, chronically ill with poor appetite, dyspnea. Still same discomfort in the abdominal area. The Culture is positive for Gram Neg. The cardiac and pulmonary w/u pending. Urology consult appreciated. Objective - Vital Signs/Intake and Output Vital Signs (last 24 hours): Temp Pulse Resp BP Pulse Ox 97.8 F 80 19 151/69 H 97 07/23/18 08:08 07/23/18 09:56 07/23/18 08:08 07/23/18 09:56 07/23/18 08:08 - Medications Medications: Current Medications Albuterol (Ventolin Hfa 90 Mcg/Actuation (8 G)) 1 puff INH RQ6 PRN PRN Reason: Shortness of Breath Carvedilol (Coreg) 3.125 mg PO BID [facility] Last Admin: 07/23/18 09:56 Dose: 3.125 mg Cyanocobalamin (Vitamin B12 1000 Mcg/Ml Inj) 1,000 mcg IM DAILY [facility] Last Admin: 07/23/18 09:57 Dose: 1,000 mcg Enoxaparin Sodium (Lovenox) 40 mg SC DAILY [facility] PRN Reason: Protocol Last Admin: 07/23/18 09:56 Dose: 40 mg Ceftriaxone Sodium 1 gm/ (Sodium Chloride) 100 mls @ 100 mls/hr IVPB DAILY [facility] PRN Reason: Protocol Last Admin: 07/23/18 09:54 Dose: 100 mls/hr Loratadine (Claritin) 10 mg PO DIALW PRN PRN Reason: sob Montelukast Sodium (Singulair) 10 mg PO [facility] Last Admin: 07/22/18 21:39 Dose: 10 mg - Labs Labs: 07/23/18 08:19 07/23/18 08:19 PT 12.9 Seconds (9.8-13.1) 07/22/18 09:57 INR 1.2 07/22/18 09:57 APTT 32.5 Seconds (25.6-37.1) 07/22/18 09:57 - Constitutional Appears: Cachectic, Chronically Ill - Head Exam Head Exam: ATRAUMATIC, NORMAL INSPECTION, NORMOCEPHALIC - Eye Exam Eye Exam: Normal appearance Pupil Exam: PERRL - ENT Exam ENT Exam: Mucous Membranes Moist - Neck Exam Neck Exam: Full ROM - Respiratory Exam Respiratory Exam: Decreased Breath Sounds - Cardiovascular Exam Cardiovascular Exam: REGULAR RHYTHM, +S1, +S2 - GI/Abdominal Exam GI & Abdominal Exam: Normal Bowel Sounds - Neurological Exam Neurological Exam: Abnormal Gait, Alert, Awake, Oriented x3 - Psychiatric Exam Psychiatric exam: Flat Affect - Skin Skin Exam: Normal Color Assessment and Plan (1) Debility Status: Acute (2) Cachexia Status: Acute (3) Ovarian cyst Status: Acute (4) Pyelonephritis Status: Acute (5) Renal stone Status: Acute (6) UTI (urinary tract infection) Status: Acute (7) Bronchial asthma Status: Chronic (8) HTN (hypertension) Status: Chronic (9) Enteritis Status: Acute (10) Dehydration Status: Acute (11) Hypopotassemia Status: Acute (12) Abnormal liver enzymes Status: Acute (13) Leukocytosis Status: Acute (14) Vitamin B12 deficiency Status: Acute (15) Failure to thrive Status: Acute (16) Failure to thrive in adult Status: Acute (17) Hydronephrosis concurrent with and due to calculi of kidney and ureter Status: Acute (18) Pericardial effusion Status: Acute (19) Pneumonia Status: Suspected - Assessment and Plan (Free Text) Plan: As above
--- NOTE | 2018-07-23 11:27 | PQF ---
PROVIDER RESPONSE TEXT: COPD Asthma moderate persistent REVIEWER QUERY TEXT: Asthma Specificity and Type Asthma is documented in the Medical Record. Please specify the type and severity of asthma and indic ate if this is associated with exacerbation or status asthmaticus. Such as: -- Mild intermittent -- Mild persistent -- Moderate persistent -- Severe persistent -- Exercise induced bronchospasm -- Cough variant asthma -- Other, please specify The patient's Clinical Indicators include: Documentation of a history of Bronchial Asthma. CXR: Stable COPD pattern with likely fibrosis blunts the right costophrenic sulcus though minimal ri ght pleural effusion not excluded. CT CHEST Pending. Medication: Ventolin HFA, Singulair Query created by: Lizet Flynn on 07/23/2018 9:33 AM Electronically signed by: Kayden Lehman MD 07/23/2018 11:24 AM
[2018-07-23] MEDS ORDERED: Albuterol-Ipratrop 3 mg / 0.5 (3 ml) UD INH PRN (11:30)
--- NOTE | 2018-07-23 11:31 | CP.PCM.CON ---
History of Present Illness - History of Present Illness History of Present Illness: admitted with Urosepsis going for CT and echo await sensitivity reports rx renewed 83 y/o female with a PMHx of HTN and asthma presents to the ED for evaluation of right sided abdominal pain, ongoing for one week. Patient reports pain has been worsening since onset and is associated with lack of appetite, poor PO intake, dysuria, frequency, nausea and one episode of shaking chills today. Denies hematuria, vomiting, fever, diarrhea and constipation. - Medical History PMH: Asthma, HTN, Hypercholesterolemia Denies: Arthritis, CHF, COPD, Hypothyroidism, Chronic Kidney Disease, Rheumatoid Arthritis Review of Systems - Review of Systems All systems: reviewed and no additional remarkable complaints except Past Patient History - Past Medical History & Family History Past Medical History?: Yes - Past Social History Smoking Status: Never Smoked - CARDIAC Hx Cardiac Disorders: Yes Hx Congestive Heart Failure: No Hx Hypercholesterolemia: Yes Hx Hypertension: Yes - PULMONARY Hx Respiratory Disorders: Yes Hx Asthma: Yes Hx Chronic Obstructive Pulmonary Disease (COPD): No - NEUROLOGICAL Hx Neurological Disorder: No HX Cerebrovascular Accident: No - HEENT Hx HEENT Problems: Yes Hx Cataracts: Yes Hx Deafness: Yes - RENAL Hx Chronic Kidney Disease: No Hx Dialysis: No Hx Kidney Stones: No Hx Neurogenic Bladder: No Hx Pyelonephritis: No Hx Renal (Kidney) Cancer: No Hx Renal Failure: No - ENDOCRINE/METABOLIC Hx Endocrine Disorders: No Hx Adrenal Cancer: No Hx Diabetes Insipidus: No Hx Diabetes Mellitus Type 1: No Hx Diabetes Mellitus Type 2: No Hx Hyperthyroidism: No Hx Hypothyroidism: No Hx Systemic Lupus Erythematosus: No - HEMATOLOGICAL/ONCOLOGICAL Hx Blood Disorders: No Hx AIDS: No Hx Hepatitis C: No Hx Human Immunodeficiency Virus (HIV): No - INTEGUMENTARY Hx Dermatological Problems: No - MUSCULOSKELETAL/RHEUMATOLOGICAL Hx Musculoskeletal Disorders: Yes Hx Falls: Yes (2 yrs ago) Hx Fractures: Yes (sacral fx 2 yrs ago) - GASTROINTESTINAL Hx Gastrointestinal Disorders: Yes Hx Gastroesophageal Reflux: Yes - GENITOURINARY/GYNECOLOGICAL Hx Genitourinary Disorders: No - PSYCHIATRIC Hx Psychophysiologic Disorder: No Hx Substance Use: No - SURGICAL HISTORY Hx Surgeries: Yes Hx Coronary Artery Bypass Graft: No Hx Herniorrhaphy: Yes - ANESTHESIA Hx Anesthesia: Yes Hx Anesthesia Reactions: No Hx Malignant Hyperthermia: No Meds Allergies/Adverse Reactions: Allergies Allergy/AdvReac Type Severity Reaction Status Date / Time No Known Allergies Allergy Verified 03/10/18 19:39 - Medications Medications: Current Medications Albuterol (Ventolin Hfa 90 Mcg/Actuation (8 G)) 1 puff INH RQ6 PRN PRN Reason: Shortness of Breath Carvedilol (Coreg) 3.125 mg PO BID [facility] Last Admin: 07/23/18 09:56 Dose: 3.125 mg Cyanocobalamin (Vitamin B12 1000 Mcg/Ml Inj) 1,000 mcg IM DAILY [facility] Last Admin: 07/23/18 09:57 Dose: 1,000 mcg Enoxaparin Sodium (Lovenox) 40 mg SC DAILY [facility] PRN Reason: Protocol Last Admin: 07/23/18 09:56 Dose: 40 mg Ceftriaxone Sodium 1 gm/ (Sodium Chloride) 100 mls @ 100 mls/hr IVPB DAILY [facility] PRN Reason: Protocol Last Admin: 07/23/18 09:54 Dose: 100 mls/hr Loratadine (Claritin) 10 mg PO DIALW PRN PRN Reason: sob Montelukast Sodium (Singulair) 10 mg PO [facility] Last Admin: 07/22/18 21:39 Dose: 10 mg Physical Exam - Constitutional Appears: No Acute Distress, Chronically Ill - Head Exam Head Exam: ATRAUMATIC, NORMOCEPHALIC - Eye Exam Eye Exam: absent: Scleral icterus - ENT Exam ENT Exam: Mucous Membranes Dry, Normal External Ear Exam - Neck Exam Neck exam: Negative for: Lymphadenopathy - Respiratory Exam Respiratory Exam: Decreased Breath Sounds, Clear to Auscultation Bilateral - Cardiovascular Exam Cardiovascular Exam: REGULAR RHYTHM, +S1, +S2 - GI/Abdominal Exam GI & Abdominal Exam: Diminished Bowel Sounds, Distended, Soft, Tenderness - Rectal Exam Rectal Exam: absent: Deferred - Exam Exam: NORMAL INSPECTION - Extremities Exam Extremities exam: Negative for: pedal edema - Back Exam Back exam: absent: CVA tenderness (L), CVA tenderness (R) - Neurological Exam Neurological exam: Alert, CN II-XII Intact, Oriented x3, Reflexes Normal - Psychiatric Exam Psychiatric exam: Normal Mood - Skin Skin Exam: Dry Results - Vital Signs Recent Vital Signs: Last Vital Signs Temp 97.8 F 07/23/18 08:08 Pulse 80 07/23/18 09:56 Resp 19 07/23/18 08:08 BP 151/69 H 07/23/18 09:56 Pulse Ox 97 07/23/18 08:08 - Labs Result Diagrams: 07/23/18 08:19 07/23/18 08:19 Labs: Laboratory Results - last 24 hr 07/22/18 07/22/18 07/22/18 09:00 09:24 09:24 WBC RBC Hgb Hct MCV MCH MCHC RDW Plt Count MPV Neut % (Auto) Lymph % (Auto) [place] % (Auto) Eos % (Auto) Baso % (Auto) Neut # (Auto) Lymph # (Auto) [place] # (Auto) Eos # (Auto) Baso # (Auto) Sodium Potassium Chloride Carbon Dioxide Anion Gap BUN Creatinine Est GFR ( Amer) Est GFR (Non-Af Amer) Random Glucose Calcium [place] 125 Antigen Folate 16.1 RPR Nonreactive Hepatitis A IgM Ab Negative Hep Bs Antigen Negative Negative Hep Bs Antibody Hep Bs Antibody, Quant Hep B Core IgM Ab Negative Hepatitis C Antibody Negative Hep C Ab Signal/Cutoff 07/22/18 07/22/18 07/22/18 09:57 09:57 09:57 WBC RBC Hgb Hct MCV MCH MCHC RDW Plt Count MPV Neut % (Auto) Lymph % (Auto) [place] % (Auto) Eos % (Auto) Baso % (Auto) Neut # (Auto) Lymph # (Auto) [place] # (Auto) Eos # (Auto) Baso # (Auto) Sodium Potassium Chloride Carbon Dioxide Anion Gap BUN Creatinine Est GFR ( Amer) Est GFR (Non-Af Amer) Random Glucose Calcium [place] 125 Antigen Folate RPR Hepatitis A IgM Ab Hep Bs Antigen Hep Bs Antibody Negative Hep Bs Antibody, Quant <5 L Hep B Core IgM Ab Negative Hepatitis C Antibody Non reactive Hep C Ab Signal/Cutoff 0.0 07/22/18 07/23/18 07/23/18 13:40 08:19 08:19 WBC 9.3 RBC 3.75 L Hgb 10.2 L Hct 30.7 L MCV 81.8 MCH 27.3 MCHC 33.4 RDW 17.1 H Plt Count 514 H MPV 8.6 Neut % (Auto) 73.0 Lymph % (Auto) 13.6 L [place] % (Auto) 12.5 H Eos % (Auto) 0.7 Baso % (Auto) 0.2 Neut # (Auto) 6.8 Lymph # (Auto) 1.3 [place] # (Auto) 1.2 H Eos # (Auto) 0.1 Baso # (Auto) 0.0 Sodium 141 Potassium 3.6 Chloride 108 H Carbon Dioxide 28 Anion Gap 9 L BUN 8 Creatinine 0.4 L Est GFR ( Amer) > 60 Est GFR (Non-Af Amer) > 60 Random Glucose 104 Calcium 7.9 L CA 125 Antigen 22.9 Folate RPR Hepatitis A IgM Ab Hep Bs Antigen Hep Bs Antibody Hep Bs Antibody, Quant Hep B Core IgM Ab Hepatitis C Antibody Hep C Ab Signal/Cutoff Assessment & Plan (1) Cachexia Status: Acute (2) Failure to thrive in adult Status: Acute (3) Hydronephrosis concurrent with and due to calculi of kidney and ureter Status: Acute (4) Leukocytosis Status: Acute - Assessment and Plan (Free Text) Assessment: improving slowly on IV rx may need eval await CT scan Cont IV Rocephin for now / await cultures
--- NOTE | 2018-07-23 13:08 | US ---
Date of service: 07/22/2018 HISTORY: pelvic cyst COMPARISON: CT abdomen and pelvis from 07/22/2018. TECHNIQUE: Transabdominal pelvic ultrasound was performed. FINDINGS: UTERUS: Measures 7.7 x 4.7 x 3.9 cm. Retroverted with heterogeneous myometrial echotexture. No fibroid or other mass lesion seen. ENDOMETRIUM: Not optimally visualized due to technical limitation. CERVIX: There is apparent thick cervix. RIGHT OVARY: Measures 5.4 x 3.1 x 4.0 cm. No solid mass. Normal flow. There is a 4.7 x 2.7 x 4.5 cm and echo equation in the right ovary without central flow on color Doppler imaging.. LEFT OVARY: Not visualized. FREE FLUID: No significant free fluid noted. OTHER FINDINGS: None. IMPRESSION: 4.7 x 2.7 x 4.5 cm cystic mass in the right ovary may represent a simple cyst, cystadenoma or cystadenocarcinoma. Clinical and imaging follow-up is advised. Heterogeneous retroverted uterus. The endometrium is not well visualized due to technical limitation.
--- NOTE | 2018-07-23 17:52 | CT ---
Date of service: 07/23/2018 PROCEDURE: CT Chest without contrast HISTORY: pulmonary fibrosis with infiltrate COMPARISON: Plain radiograph from 07/05/2018. TECHNIQUE: Contiguous axial images were obtained through the chest without intravenous contrast enhancement. Sagittal and coronal reconstructions were performed. Radiation dose (DLP): 170.34 mGy-cm. This CT exam was performed using one or more of the following dose reduction techniques: Automated exposure control, adjustment of the mA and/or kV according to patient size, and/or use of iterative reconstruction technique. FINDINGS: LUNGS: There is diffuse centrilobular emphysema in the lungs. There are fibrotic changes in both lower lobes and traction bronchiectasis. There is also fibrosis and traction bronchiectasis in the right middle lobe. No focal consolidation or mass. There are no endobronchial lesions. MEDIASTINUM: Unremarkable thoracic aorta. No aneurysm. Normal sized heart. Main pulmonary artery unremarkable. No vascular congestion. No lymphadenopathy. PLEURA: Small pleural effusions. No pneumothorax. BONES: No fracture. No destructive lesion. Diffuse bone demineralization. UPPER ABDOMEN: Grossly unremarkable. OTHER FINDINGS: None. IMPRESSION: Diffuse centrilobular emphysema and fibrotic changes in the lungs with traction bronchiectasis in the lower lobes and right middle lobe. No focal consolidation. Small pleural effusions.
--- NOTE | 2018-07-23 18:27 | CARD ---
APPROVED REPORT Date of service: 07/23/2018 EXAM: Two-dimensional and M-mode echocardiogram with Doppler and color Doppler. Other Information Quality : GoodRhythm : NSR INDICATION Pericardial Effusion 2D DIMENSIONS IVSd0.95 (0.7-1.1cm)LVDd3.75 (3.9-5.9cm) LVOT Diameter1.47 (1.8-2.4cm)PWd0.88 (0.7-1.1cm) IVSs0.99 (0.8-1.2cm)LA Yzoced15 (18-58mL) LVDs2.86 (2.5-4.0cm)FS (%) 23.8 % PWs0.56 (0.8-1.2cm) M-Mode DIMENSIONS Aortic Root2.70 (2.2-3.7cm) Aortic Valve AoV Peak Podlmvzs697.3cm/sAoV VTI34.8cmAO Peak GR.13mmHg LVOT Peak Ywbiadfs101.4cm/sLVOT VTI20.93cmAO Mean GR.7mmHg AI P 1/2 Vinp018nc Mitral Valve MV E Ezvhxrub98.5cm/sMV E Peak Gr.69mmHgMV DECEL [id number] MV A Lpbukbar94.2cm/sMV ROB14erK/A ratio1.1 MVA (PHT)3.77cm2 TDI Lateral E' Peak V6.03cm/sMedial E' Peak V4.48cm/sE/Lateral E'14.5 E/Medial E'19.5 Pulmonary Valve PV Peak Ngihklkc61.6cm/s Tricuspid Valve TR Peak Tltwjcjc034rp/sRAP IEKYPUTL17nmUnHO Peak Gr.38mmHg [id number] LEFT VENTRICLE The left ventricle is normal size. There is normal left ventricular wall thickness. The left ventricular systolic function is normal. The estimated ejection fraction is 55-60% No regional wall motion abnormalities noted.. The left ventricular diastolic function is normal. No left ventricle thrombus noted on this study. There is no ventricular septal defect visualized. There is no mass noted in the left ventricle. RIGHT VENTRICLE The right ventricle is normal size. There is normal right ventricular wall thickness. The right ventricular systolic function is normal. ATRIA The left atrium size is mildly dilated The right atrium size is mildly dilated The interatrial septum is intact with no evidence for an atrial septal defect. AORTIC VALVE The aortic valve is normal in structure. Mild sclerosis Mild aortic regurgitation is present. There is no aortic valvular stenosis. MITRAL VALVE The mitral valve is normal in structure. There is no mitral valve stenosis. There is mild mitral valve regurgitation noted. TRICUSPID VALVE The tricuspid valve is normal in structure. There is mild to moderate tricuspid valve regurgitation noted. PASP moderately elevated PULMONIC VALVE The pulmonary valve is normal in structure. There is no pulmonic valvular regurgitation. GREAT VESSELS The aortic root is normal in size. The ascending aorta is normal in size. The pulmonary artery is normal. The IVC is normal in size and collapses >50% with inspiration. PERICARDIAL EFFUSION There is no pericardial effusion. <Conclusion> Mild mitral insufficiency Mild to moderate TR with moderate pulmonary hypertension Biatrial dilation Normal LV function No pericardial effusion The estimated ejection fraction is 55-60%
[2018-07-24] MEDS: Enoxaparin 40 mg Syringe SC SCH (08:55)
--- NOTE | 2018-07-24 09:27 | CP.PCM.CON ---
History of Present Illness - History of Present Illness History of Present Illness: UROLOGY called to see this 83 yr female for initial eval of acute uti / pyelonephritis. A CT was performen of the abdomen and showed a right hydronephrosis scondary to a 2+ cm occlusive UPJ calculus. Initial WBC 25,000. She has be3n started on IV antibiotics. On physicl pt does not present with acute renal colic in the right flank area. Which leads to the suspicion that this is a chronic condition. I feel the patient is not able to fully understand her options of care so I will reach out to her son to explain her condition and available options Past Patient History - Past Medical History & Family History Past Medical History?: Yes - Past Social History Smoking Status: Never Smoked - CARDIAC Hx Cardiac Disorders: Yes Hx Congestive Heart Failure: No Hx Hypercholesterolemia: Yes Hx Hypertension: Yes - PULMONARY Hx Respiratory Disorders: Yes Hx Asthma: Yes Hx Chronic Obstructive Pulmonary Disease (COPD): No - NEUROLOGICAL Hx Neurological Disorder: No HX Cerebrovascular Accident: No - HEENT Hx HEENT Problems: Yes Hx Cataracts: Yes Hx Deafness: Yes - RENAL Hx Chronic Kidney Disease: No Hx Dialysis: No Hx Kidney Stones: No Hx Neurogenic Bladder: No Hx Pyelonephritis: No Hx Renal (Kidney) Cancer: No Hx Renal Failure: No - ENDOCRINE/METABOLIC Hx Endocrine Disorders: No Hx Adrenal Cancer: No Hx Diabetes Insipidus: No Hx Diabetes Mellitus Type 1: No Hx Diabetes Mellitus Type 2: No Hx Hyperthyroidism: No Hx Hypothyroidism: No Hx Systemic Lupus Erythematosus: No - HEMATOLOGICAL/ONCOLOGICAL Hx Blood Disorders: No Hx AIDS: No Hx Hepatitis C: No Hx Human Immunodeficiency Virus (HIV): No - INTEGUMENTARY Hx Dermatological Problems: No - MUSCULOSKELETAL/RHEUMATOLOGICAL Hx Musculoskeletal Disorders: Yes Hx Falls: Yes (2 yrs ago) Hx Fractures: Yes (sacral fx 2 yrs ago) - GASTROINTESTINAL Hx Gastrointestinal Disorders: Yes Hx Gastroesophageal Reflux: Yes - GENITOURINARY/GYNECOLOGICAL Hx Genitourinary Disorders: No - PSYCHIATRIC Hx Psychophysiologic Disorder: No Hx Substance Use: No - SURGICAL HISTORY Hx Surgeries: Yes Hx Coronary Artery Bypass Graft: No Hx Herniorrhaphy: Yes - ANESTHESIA Hx Anesthesia: Yes Hx Anesthesia Reactions: No Hx Malignant Hyperthermia: No Meds Allergies/Adverse Reactions: Allergies Allergy/AdvReac Type Severity Reaction Status Date / Time No Known Allergies Allergy Verified 03/10/18 19:39 - Medications Medications: Current Medications Albuterol (Ventolin Hfa 90 Mcg/Actuation (8 G)) 1 puff INH RQ6 PRN PRN Reason: Shortness of Breath Albuterol/Ipratropium (Duoneb 3 Mg/0.5 Mg (3 Ml) Ud) 3 ml INH RQ6 PRN PRN Reason: Shortness of Breath Carvedilol (Coreg) 3.125 mg PO BID [facility] Last Admin: 07/24/18 08:56 Dose: 3.125 mg Cyanocobalamin (Vitamin B12 1000 Mcg/Ml Inj) 1,000 mcg IM DAILY [facility] Last Admin: 07/24/18 08:56 Dose: 1,000 mcg Enoxaparin Sodium (Lovenox) 40 mg SC DAILY [facility] PRN Reason: Protocol Last Admin: 07/24/18 08:55 Dose: 40 mg Ceftriaxone Sodium 1 gm/ (Sodium Chloride) 100 mls @ 100 mls/hr IVPB DAILY [facility] PRN Reason: Protocol Last Admin: 07/24/18 08:55 Dose: 100 mls/hr Loratadine (Claritin) 10 mg PO DIALW PRN PRN Reason: sob Last Admin: 07/24/18 08:56 Dose: 10 mg Montelukast Sodium (Singulair) 10 mg PO HS [facility] Last Admin: 07/23/18 21:32 Dose: 10 mg Results - Vital Signs Recent Vital Signs: Last Vital Signs Temp 97.6 F 07/24/18 07:58 Pulse 70 07/24/18 08:56 Resp 18 07/24/18 07:58 BP 147/74 07/24/18 08:56 Pulse Ox 94 L 07/24/18 07:58 - Labs Result Diagrams: 07/23/18 08:19 07/23/18 08:19 Labs: Laboratory Results - last 24 hr 07/22/18 09:57 Hepatitis Be Antibody Non-reactive Hepatitis Be Antigen Non-reactive
--- NOTE | 2018-07-24 09:30 | CP.PCM.PN ---
Subjective - Date & Time of Evaluation Date of Evaluation: 07/24/18 Time of Evaluation: 09:27 - Subjective Subjective: UROLOGY current WBC has returned to normal and BUN CREAT are well within normal range. I spoke with Pt's son yesterday and the conclusion is to manage her condition conservatively at this time. If she redevelops a septic condition in the near future then will need and he will accept the plan of renal stenting and renal lithotripsy Objective - Vital Signs/Intake and Output Vital Signs (last 24 hours): Temp Pulse Resp BP Pulse Ox 97.6 F 70 18 147/74 94 L 07/24/18 07:58 07/24/18 08:56 07/24/18 07:58 07/24/18 08:56 07/24/18 07:58 - Medications Medications: Current Medications Albuterol (Ventolin Hfa 90 Mcg/Actuation (8 G)) 1 puff INH RQ6 PRN PRN Reason: Shortness of Breath Albuterol/Ipratropium (Duoneb 3 Mg/0.5 Mg (3 Ml) Ud) 3 ml INH RQ6 PRN PRN Reason: Shortness of Breath Carvedilol (Coreg) 3.125 mg PO BID [facility] Last Admin: 07/24/18 08:56 Dose: 3.125 mg Cyanocobalamin (Vitamin B12 1000 Mcg/Ml Inj) 1,000 mcg IM DAILY [facility] Last Admin: 07/24/18 08:56 Dose: 1,000 mcg Enoxaparin Sodium (Lovenox) 40 mg SC DAILY [facility] PRN Reason: Protocol Last Admin: 07/24/18 08:55 Dose: 40 mg Ceftriaxone Sodium 1 gm/ (Sodium Chloride) 100 mls @ 100 mls/hr IVPB DAILY [facility] PRN Reason: Protocol Last Admin: 07/24/18 08:55 Dose: 100 mls/hr Loratadine (Claritin) 10 mg PO DIALW PRN PRN Reason: sob Last Admin: 07/24/18 08:56 Dose: 10 mg Montelukast Sodium (Singulair) 10 mg PO HS [facility] Last Admin: 07/23/18 21:32 Dose: 10 mg - Labs Labs: 07/23/18 08:19 07/23/18 08:19 PT 12.9 Seconds (9.8-13.1) 07/22/18 09:57 INR 1.2 07/22/18 09:57 APTT 32.5 Seconds (25.6-37.1) 07/22/18 09:57
--- NOTE | 2018-07-25 00:01 | CP.PCM.PN ---
Subjective - Date & Time of Evaluation Date of Evaluation: 07/25/18 Time of Evaluation: 13:00 - Subjective Subjective: Patient improving Objective - Vital Signs/Intake and Output Vital Signs (last 24 hours): Temp Pulse Resp BP Pulse Ox 98 F 67 20 162/67 H 98 07/24/18 16:20 07/24/18 17:00 07/24/18 16:20 07/24/18 17:00 07/24/18 16:20 - Medications Medications: Current Medications Albuterol (Ventolin Hfa 90 Mcg/Actuation (8 G)) 1 puff INH RQ6 PRN PRN Reason: Shortness of Breath Albuterol/Ipratropium (Duoneb 3 Mg/0.5 Mg (3 Ml) Ud) 3 ml INH RQ6 PRN PRN Reason: Shortness of Breath Carvedilol (Coreg) 3.125 mg PO BID [facility] Last Admin: 07/24/18 17:00 Dose: 3.125 mg Cyanocobalamin (Vitamin B12 1000 Mcg/Ml Inj) 1,000 mcg IM DAILY [facility] Last Admin: 07/24/18 08:56 Dose: 1,000 mcg Enoxaparin Sodium (Lovenox) 40 mg SC DAILY [facility] PRN Reason: Protocol Last Admin: 07/24/18 08:55 Dose: 40 mg Ceftriaxone Sodium 1 gm/ (Sodium Chloride) 100 mls @ 100 mls/hr IVPB DAILY [facility] PRN Reason: Protocol Last Admin: 07/24/18 08:55 Dose: 100 mls/hr Loratadine (Claritin) 10 mg PO DIALW PRN PRN Reason: sob Last Admin: 07/24/18 08:56 Dose: 10 mg Montelukast Sodium (Singulair) 10 mg PO HS [facility] Last Admin: 07/24/18 21:55 Dose: 10 mg - Labs Labs: 07/23/18 08:19 07/23/18 08:19 PT 12.9 Seconds (9.8-13.1) 07/22/18 09:57 INR 1.2 07/22/18 09:57 APTT 32.5 Seconds (25.6-37.1) 07/22/18 09:57 - Constitutional Appears: Cachectic, Chronically Ill - Head Exam Head Exam: ATRAUMATIC, NORMAL INSPECTION, NORMOCEPHALIC - Eye Exam Eye Exam: Normal appearance - ENT Exam ENT Exam: Mucous Membranes Moist - Neck Exam Neck Exam: Normal Inspection - Respiratory Exam Respiratory Exam: Decreased Breath Sounds - Cardiovascular Exam Cardiovascular Exam: REGULAR RHYTHM, +S1, +S2 - GI/Abdominal Exam GI & Abdominal Exam: Soft, Normal Bowel Sounds - Extremities Exam Extremities Exam: Full ROM - Neurological Exam Neurological Exam: Abnormal Gait, Alert, Awake, CN II-XII Intact - Psychiatric Exam Psychiatric exam: Flat Affect - Skin Skin Exam: Pallor Assessment and Plan (1) Debility Status: Acute (2) Cachexia Status: Acute (3) Ovarian cyst Status: Acute (4) Pyelonephritis Status: Acute (5) Renal stone Status: Acute (6) UTI (urinary tract infection) Status: Acute (7) Bronchial asthma Status: Chronic (8) HTN (hypertension) Status: Chronic (9) Enteritis Status: Acute (10) Dehydration Status: Acute (11) Hypopotassemia Status: Acute (12) Abnormal liver enzymes Status: Acute (13) Leukocytosis Status: Acute (14) Vitamin B12 deficiency Status: Acute (15) Failure to thrive Status: Acute (16) Failure to thrive in adult Status: Acute (17) Hydronephrosis concurrent with and due to calculi of kidney and ureter Status: Acute (18) Pericardial effusion Status: Acute (19) Pneumonia Status: Suspected - Assessment and Plan (Free Text) Plan: Continue present rx
[2018-07-25 00:30] VITALS: PULSE 75
[2018-07-25 08:11] VITALS: BP 155/74; RESP 18; TEMP 97.8
[2018-07-25] MEDS: Enoxaparin 40 mg Syringe SC SCH (09:03)
--- NOTE | 2018-07-25 13:19 | PQF ---
PROVIDER RESPONSE TEXT: Patient has UTI with associated sepsis - fever chills wbc 26K , , bacteriuria, likely pyelonephritis REVIEWER QUERY TEXT: Urosepsis Urosepsis is documented in the Medical Record. Per [employer] Dictionary, urosepsis is an imp recise term. Please clarify in documentation the specific type of infection: -Bacturia -Urinary tract infection (specify specific location such as bladder, pyelonephritis, etc.) -Sepsis due to a urinary tract infection please document supporting criteria for sepsis -Other The patient's Clinical Indicators include: Presents with R sided abdominal pain, lack of appetite, poor po intake, dysuria, frequency, nausea an d 1 episode of shaking on the day of admission. CT: Pelvic cyst, R sided hydronephrosis, thickening of small bowel loop /ileum, bibasilar atelectasis , small pericardial effusion. See FULL report WBC 25.6 L shift, Lactate 1.0, UA: cloudy, blood, leukocyte esterase, rbc, wbc, bacteria URINE CS >100,000 gram negative rods ID pending, BLOOD CS No growth 48 hours Rx: Rocephin TEMP: 98.5, 99.7, 98.7, 98.7, 97.6, 97.7 HR: 100, 83, 79, 81, 74, 64, 64, 74, 74 BP: 152/78, 130/59, 123/64, 103/52, 136/63, 110/55 Query created by: Lizet Flynn on 07/24/2018 8:14 AM Electronically signed by: Fritz Jonas MD 07/25/2018 1:16 PM
--- NOTE | 2018-07-25 13:27 | CP.PCM.PN ---
Subjective - Date & Time of Evaluation Date of Evaluation: 07/25/18 Time of Evaluation: 08:00 - Subjective Subjective: weak nad Objective - Vital Signs/Intake and Output Vital Signs (last 24 hours): Temp Pulse Resp BP Pulse Ox 97.8 F 75 18 155/74 H 97 07/25/18 08:11 07/25/18 09:03 07/25/18 08:11 07/25/18 09:03 07/25/18 08:11 - Medications Medications: Current Medications Albuterol (Ventolin Hfa 90 Mcg/Actuation (8 G)) 1 puff INH RQ6 PRN PRN Reason: Shortness of Breath Albuterol/Ipratropium (Duoneb 3 Mg/0.5 Mg (3 Ml) Ud) 3 ml INH RQ6 PRN PRN Reason: Shortness of Breath Carvedilol (Coreg) 3.125 mg PO BID [facility] Last Admin: 07/25/18 09:03 Dose: 3.125 mg Cyanocobalamin (Vitamin B12 1000 Mcg/Ml Inj) 1,000 mcg IM DAILY [facility] Last Admin: 07/25/18 09:04 Dose: 1,000 mcg Ceftriaxone Sodium 1 gm/ (Sodium Chloride) 100 mls @ 100 mls/hr IVPB DAILY [facility] PRN Reason: Protocol Loratadine (Claritin) 10 mg PO DIALW PRN PRN Reason: sob Last Admin: 07/24/18 08:56 Dose: 10 mg Montelukast Sodium (Singulair) 10 mg PO [facility] Last Admin: 07/24/18 21:55 Dose: 10 mg - Labs Labs: 07/23/18 08:19 07/23/18 08:19 PT 12.9 Seconds (9.8-13.1) 07/22/18 09:57 INR 1.2 07/22/18 09:57 APTT 32.5 Seconds (25.6-37.1) 07/22/18 09:57 - Constitutional Appears: Non-toxic, Chronically Ill - Head Exam Head Exam: NORMOCEPHALIC - Eye Exam Eye Exam: PERRL - ENT Exam ENT Exam: Mucous Membranes Dry - Neck Exam Neck Exam: absent: Lymphadenopathy - Respiratory Exam Respiratory Exam: Decreased Breath Sounds - Cardiovascular Exam Cardiovascular Exam: REGULAR RHYTHM - GI/Abdominal Exam GI & Abdominal Exam: Distended, Soft - Rectal Exam Rectal Exam: Deferred - Exam Exam: NORMAL INSPECTION - Extremities Exam Extremities Exam: absent: Pedal Edema - Back Exam Back Exam: absent: CVA tenderness (L), CVA tenderness (R) - Neurological Exam Neurological Exam: Alert, Awake Assessment and Plan (1) Cachexia Status: Acute (2) Failure to thrive in adult Status: Acute (3) Hydronephrosis concurrent with and due to calculi of kidney and ureter Status: Acute (4) Leukocytosis Status: Acute - Assessment and Plan (Free Text) Assessment: cont iv then po rx for 10 days
[2018-07-25 14:50] VITALS: O2SAT 99
--- NOTE | 2018-07-25 16:27 | CP.PCM.HP ---
History of Present Illness - History of Present Illness History of Present Illness: 83 y/o female with a PMHx of HTN and asthma presents to the ED with c/o of right sided abdominal pain x 1 week. Patient reports pain has been worsening since onset and is associated with lack of appetite, poor PO intake, dysuria, frequency, nausea and one episode of shaking chills today. Denies hematuria, vomiting, fever, diarrhea and constipation. C/O loss of weight secondary to poor appetite and pain in the abdomen. Patient presented with renal stone and hydronephrosis. She well responded to rx . F/U in TCU. Past Patient History - Past Medical History & Family History Past Medical History?: Yes - Past Social History Alcohol: None Drugs: Denies - CARDIAC Hx Congestive Heart Failure: No Hx Hypercholesterolemia: Yes Hx Hypertension: Yes - PULMONARY Hx Asthma: Yes Hx Chronic Obstructive Pulmonary Disease (COPD): No - NEUROLOGICAL Hx Neurological Disorder: No HX Cerebrovascular Accident: No - HEENT Hx HEENT Problems: Yes Hx Cataracts: Yes Hx Deafness: Yes - RENAL Hx Chronic Kidney Disease: No - ENDOCRINE/METABOLIC Hx Hypothyroidism: No - HEMATOLOGICAL/ONCOLOGICAL Hx Blood Disorders: No Hx AIDS: No Hx Hepatitis C: No Hx Human Immunodeficiency Virus (HIV): No - INTEGUMENTARY Hx Dermatological Problems: No - MUSCULOSKELETAL/RHEUMATOLOGICAL Hx Arthritis: No Hx Rheumatoid Arthritis: No - GASTROINTESTINAL Hx Gastrointestinal Disorders: Yes Hx Gastroesophageal Reflux: Yes - GENITOURINARY/GYNECOLOGICAL Hx Genitourinary Disorders: No - PSYCHIATRIC Hx Psychophysiologic Disorder: No Hx Substance Use: No - SURGICAL HISTORY Hx Appendectomy: Yes Hx Coronary Artery Bypass Graft: No - ANESTHESIA Hx Anesthesia: Yes Hx Anesthesia Reactions: No Hx Malignant Hyperthermia: No Meds Home Medications: Home Medication List Medication Instructions Recorded Confirmed Type Albuterol/Ipratropium [Duoneb 3 3 ml INH RQ6 PRN neb 07/25/18 Rx mg/0.5 mg (3 ml) UD] [id number] 1 gm [Rocephin 1 gram 1 gm IVPB DAILY 8 Days #8 bag 07/25/18 Rx IVPB] Allergies/Adverse Reactions: Allergies Allergy/AdvReac Type Severity Reaction Status Date / Time No Known Allergies Allergy Verified 07/25/18 15:24 Results - Vital Signs Recent Vital Signs: Last Vital Signs Temp 97.8 F 07/25/18 09:00 Pulse 75 07/25/18 09:03 Resp 18 07/25/18 09:00 BP 155/74 H 07/25/18 09:03 Pulse Ox 99 07/25/18 14:49 - Labs Result Diagrams: 07/23/18 08:19 07/23/18 08:19 Assessment & Plan (1) Debility Status: Acute (2) Cachexia Status: Acute (3) Ovarian cyst Status: Acute (5) Renal stone Status: Acute (6) UTI (urinary tract infection) Status: Acute (7) Bronchial asthma Status: Chronic Priority: Medium (8) HTN (hypertension) Status: Chronic Priority: Medium (9) Enteritis Status: Acute (10) Dehydration Status: Acute (11) Hypopotassemia Status: Acute (12) Abnormal liver enzymes Status: Acute (13) Leukocytosis Status: Acute (14) Vitamin B12 deficiency Status: Acute (15) Failure to thrive Status: Acute (16) Failure to thrive in adult Status: Acute (17) Hydronephrosis concurrent with and due to calculi of kidney and ureter Status: Acute (18) Pericardial effusion Status: Acute (19) Pneumonia Status: Suspected
--- NOTE | 2018-07-25 16:31 | CP.PCM.DIS ---
Provider - Provider Date of Admission: 07/22/18 01:45 Attending physician: Kayden Lehman MD Time Spent in preparation of Discharge (in minutes): 30 Diagnosis - Discharge Diagnosis (1) Debility Status: Acute (2) Cachexia Status: Acute (3) Ovarian cyst Status: Acute (5) Renal stone Status: Acute (6) UTI (urinary tract infection) Status: Acute (7) Bronchial asthma Status: Chronic Priority: Medium (8) HTN (hypertension) Status: Chronic Priority: Medium (9) Enteritis Status: Acute (10) Dehydration Status: Acute (11) Hypopotassemia Status: Acute (12) Abnormal liver enzymes Status: Acute (13) Leukocytosis Status: Acute (14) Vitamin B12 deficiency Status: Acute (15) Failure to thrive Status: Acute (16) Failure to thrive in adult Status: Acute (17) Hydronephrosis concurrent with and due to calculi of kidney and ureter Status: Acute (18) Pericardial effusion Status: Acute (19) Pneumonia Status: Suspected Hospital Course - Lab Results Lab Results: Micro Results 07/21/18 20:38 Blood-Venous Blood Culture - Preliminary NO GROWTH AFTER 3 DAYS 07/21/18 20:22 Blood-Venous Blood Culture - Preliminary NO GROWTH AFTER 3 DAYS 07/21/18 20:38 Urine,Clean Catch Urine Culture - Final Escherichia Coli Enterococcus Faecalis Most Recent Lab Values WBC 9.3 K/uL (4.8-10.8) 07/23/18 08:19 RBC 3.75 Mil/uL (3.80-5.20) L 07/23/18 08:19 Hgb 10.2 g/dL (12.0-16.0) L 07/23/18 08:19 Hct 30.7 % (34.0-47.0) L 07/23/18 08:19 MCV 81.8 fl (81.0-99.0) 07/23/18 08:19 MCH 27.3 pg (27.0-31.0) 07/23/18 08:19 MCHC 33.4 g/dL (33.0-37.0) 07/23/18 08:19 RDW 17.1 % (11.5-14.5) H 07/23/18 08:19 Plt Count 514 K/uL (130-400) H 07/23/18 08:19 MPV 8.6 fl (7.2-11.7) 07/23/18 08:19 Neut % (Auto) 73.0 % (50.0-75.0) 07/23/18 08:19 Lymph % (Auto) 13.6 % (20.0-40.0) L 07/23/18 08:19 [place] % (Auto) 12.5 % (0.0-10.0) H 07/23/18 08:19 Eos % (Auto) 0.7 % (0.0-4.0) 07/23/18 08:19 Baso % (Auto) 0.2 % (0.0-2.0) 07/23/18 08:19 Neut # (Auto) 6.8 K/uL (1.8-7.0) 07/23/18 08:19 Lymph # (Auto) 1.3 K/uL (1.0-4.3) 07/23/18 08:19 [place] # (Auto) 1.2 K/uL (0.0-0.8) H 07/23/18 08:19 Eos # (Auto) 0.1 K/uL (0.0-0.7) 07/23/18 08:19 Baso # (Auto) 0.0 K/uL (0.0-0.2) 07/23/18 08:19 Neutrophils % (Manual) 93 % (42-75) H 07/21/18 21:00 Lymphocytes % (Manual) 2 % (20-50) L 07/21/18 21:00 Monocytes % (Manual) 5 % (0-10) 07/21/18 21:00 Platelet Estimate Increased (NORMAL) H 07/21/18 21:00 Hypochromasia (manual) Slight 07/21/18 21:00 Anisocytosis (manual) Slight 07/21/18 21:00 PT 12.9 Seconds (9.8-13.1) 07/22/18 09:57 INR 1.2 07/22/18 09:57 APTT 32.5 Seconds (25.6-37.1) 07/22/18 09:57 pO2 32 mm/Hg (30-55) 07/21/18 21:08 VBG pH 7.44 (7.32-7.43) H 07/21/18 21:08 VBG pCO2 46 mmHg (40-60) 07/21/18 21:08 VBG HCO3 28.8 mmol/L 07/21/18 21:08 VBG Total CO2 32.6 mmol/L (22-28) H 07/21/18 21:08 VBG O2 Sat (Calc) 65.5 % (40-65) H 07/21/18 21:08 VBG Base Excess 6.1 mmol/L (0.0-2.0) H 07/21/18 21:08 VBG Potassium 3.2 mmol/L (3.6-5.2) L 07/21/18 21:08 Sodium 132.0 mmol/L (132-148) 07/21/18 21:08 Chloride 99.0 mmol/L (98-107) 07/21/18 21:08 Glucose 127 mg/dL (65-105) H 07/21/18 21:08 Lactate 1.0 mmol/L (0.7-2.1) 07/21/18 21:08 FiO2 21.0 % 07/21/18 21:08 Sodium 141 mmol/l (132-148) 07/23/18 08:19 Potassium 3.6 MMOL/L (3.6-5.0) 07/23/18 08:19 Chloride 108 mmol/L (98-107) H 07/23/18 08:19 Carbon Dioxide 28 mmol/L (22-30) 07/23/18 08:19 Anion Gap 9 (10-20) L 07/23/18 08:19 BUN 8 mg/dl (7-17) 07/23/18 08:19 Creatinine 0.4 mg/dl (0.7-1.2) L 07/23/18 08:19 Est GFR ( Amer) > 60 07/23/18 08:19 Est GFR (Non-Af Amer) > 60 07/23/18 08:19 POC Glucose (mg/dL) 120 mg/dL (65-110) H 07/21/18 20:25 Random Glucose 104 mg/dL (65-105) 07/23/18 08:19 Calcium 7.9 mg/dL (8.4-10.2) L 07/23/18 08:19 Phosphorus 3.4 mg/dl (2.5-4.5) 07/22/18 06:30 Magnesium 2.2 MG/DL (1.6-2.3) 07/22/18 06:30 Total Bilirubin 0.3 mg/dl (0.2-1.3) 07/22/18 09:00 Direct Bilirubin 0.2 mg/ml (0.0-0.4) 07/22/18 09:00 AST 62 U/L (14-36) H D 07/22/18 09:00 ALT 32 U/L (9-52) 07/22/18 09:00 Alkaline Phosphatase 146 U/L (38-126) H D 07/22/18 09:00 Total Protein 6.2 G/DL (6.3-8.2) L 07/22/18 09:00 Albumin 2.7 g/dL (3.5-5.0) L D 07/22/18 09:00 Globulin 3.5 gm/dL (2.2-3.9) 07/22/18 09:00 Albumin/Globulin Ratio 0.8 (1.0-2.1) L 07/22/18 09:00 Amylase 56 U/L (30-110) 07/22/18 09:00 Lipase 12 U/L (23-300) L 07/22/18 09:00 Carcinoembryonic Ag 0.8 ng/mL (0-3.0) 07/22/18 09:00 CA 125 Antigen 22.9 U/mL (0-35) 07/22/18 13:40 Vitamin B12 206 pg/mL (239-931) L 07/22/18 09:00 Folate 16.1 ng/mL 07/22/18 09:00 Free T4 1.93 ng/dL (0.78-2.19) 07/21/18 21:00 Total T3 1.17 nmol/L (1.49-2.60) L 07/21/18 21:00 TSH 3rd Generation 4.00 mIU/ML (0.46-4.68) 07/21/18 21:00 Venous Blood Potassium 3.2 mmol/L (3.6-5.2) L 07/21/18 21:08 Urine Color Anny (YELLOW) 07/21/18 20:38 Urine Clarity Cloudy (Clear) 07/21/18 20:38 Urine pH 6.0 (5.0-8.0) 07/21/18 20:38 Ur Specific [place] 1.015 (1.003-1.030) 07/21/18 20:38 Urine Protein 100 mg/dL (NEGATIVE) 07/21/18 20:38 Urine Glucose (UA) Neg mg/dL (Normal) 07/21/18 20:38 Urine Ketones Negative mg/dL (NEGATIVE) 07/21/18 20:38 Urine Blood Small (NEGATIVE) 07/21/18 20:38 Urine Nitrate Negative (NEGATIVE) 07/21/18 20:38 Urine Bilirubin Negative (NEGATIVE) 07/21/18 20:38 Urine Urobilinogen 2.0 mg/dL (0.2-1.0) H 07/21/18 20:38 Ur Leukocyte Esterase Large [place]/uL (Negative) 07/21/18 20:38 Urine RBC (Auto) 13 /hpf (0-3) H 07/21/18 20:38 Urine Microscopic WBC 191 /hpf (0-5) H 07/21/18 20:38 Ur Squamous Epith Cells 1 /hpf (0-5) 18 20:38 Urine Bacteria Mod (<OCC) H 07/21/18 20:38 RPR Nonreactive (NONREACTIVE) 07/22/18 09:24 Hepatitis A IgM Ab Negative (NEGATIVE) 07/22/18 09:24 Hep Bs Antigen Negative (NEGATIVE) 07/22/18 09:24 Hep Bs Antibody Negative (NEGATIVE) 07/22/18 09:57 Hep Bs Antibody, Quant <5 mIU/mL (>or=10) L 07/22/18 09:57 Hep B Core IgM Ab Negative (NEGATIVE) 07/22/18 09:57 Hep B DNA Interpret <1.30 not detected log IU/mL (<1.30) 07/22/18 09:57 Hepatitis Be Antibody Non-reactive (Non-reactive) 07/22/18 09:57 Hepatitis Be Antigen Non-reactive (Non-reactive) 07/22/18 09:57 Hepatitis C Antibody Non reactive (Non Reactive) 07/22/18 09:57 Hep C Ab Signal/Cutoff 0.0 (<1.0) 07/22/18 09:57 - Hospital Course Hospital Course: 83 y/o female with a PMHx of HTN and asthma presents to the ED with c/o of right sided abdominal pain x 1 week. Patient reports pain has been worsening since onset and is associated with lack of appetite, poor PO intake, dysuria, frequency, nausea and one episode of shaking chills today. Denies hematuria, vomiting, fever, diarrhea and constipation. C/O loss of weight secondary to poor appetite and pain in the abdomen. She presented with renal stones and hydronephrosis. She well responded to rx. Will f/u in TCU. Discharge Exam - Head Exam Head Exam: ATRAUMATIC, NORMOCEPHALIC - Eye Exam Eye Exam: Normal appearance - Neck Exam Neck exam: Full Rom - Respiratory Exam Respiratory Exam: Clear to PA & Lateral - Cardiovascular Exam Cardiovascular Exam: REGULAR RHYTHM, +S1, +S2 - GI/Abdominal Exam GI & Abdominal Exam: Normal Bowel Sounds - Extremities Exam Extremities exam: normal inspection - Neurological Exam Neurological exam: Alert, CN II-XII Intact, Normal Gait - Psychiatric Exam Psychiatric exam: Flat Affect Discharge Plan - Discharge Medications Prescriptions: cefTRIAXone 1 gm [Rocephin 1 gram IVPB] 1 gm IVPB DAILY 8 Days #8 bag - Follow Up Plan Condition: FAIR Disposition: REHAB FACILITY/REHAB UNIT Instructions: Urinary Tract Infection in Women (DC) Referrals: Jamel Lester MD [Medical Doctor] - Fritz Jonas MD [Staff Provider] - Kayden Lehman MD [Family Provider] -
== END 2018-07-25 15:06 | DRG 689 ==
LOC: H.ER 19:19 → H.ERHOLD 07-22 01:45 → H.MEDSURG1 07-22 03:19
PROVIDERS: ADMIT Internal Medicine; ATTEND Internal Medicine
DX: N12 Tubulo-interstitial nephritis, not specified as acute or chronic (principal); J18.9 Pneumonia, unspecified organism; A41.9 Sepsis, unspecified organism; R64 Cachexia; Z68.1 Body mass index [BMI] 19.9 or less, adult; I31.3 Pericardial effusion (noninflammatory); J98.11 Atelectasis; R62.7 Adult failure to thrive; N83.209 Unspecified ovarian cyst, unspecified side; E87.6 Hypokalemia; E86.0 Dehydration; K52.9 Noninfective gastroenteritis and colitis, unspecified; J45.40 Moderate persistent asthma, uncomplicated; J44.9 Chronic obstructive pulmonary disease, unspecified; N13.6 Pyonephrosis; E53.8 Deficiency of other specified B group vitamins; E78.00 Pure hypercholesterolemia, unspecified; H91.90 Unspecified hearing loss, unspecified ear; I10 Essential (primary) hypertension; I51.7 Cardiomegaly; K21.9 Gastro-esophageal reflux disease without esophagitis; K40.90 Unilateral inguinal hernia, without obstruction or gangrene, not specified as recurrent; K57.30 Diverticulosis of large intestine without perforation or abscess without bleeding; N94.89 Other specified conditions associated with female genital organs and menstrual cycle; H26.9 Unspecified cataract; R54 Age-related physical debility; R74.8 Abnormal levels of other serum enzymes

== ENCOUNTER 2018-07-25 14:40 | Inpatient (IN) | payer OTHER ==
[2018-07-25 15:24] VITALS: BMI 13.3
[2018-07-25] MEDS ORDERED: Albuterol-Ipratrop 3 mg / 0.5 (3 ml) UD INH PRN (15:34)
[2018-07-25] MEDS ORDERED: Albuterol HFA 90 mcg/actuation (8 g) INH PRN ×2 (15:34→19:01)
[2018-07-26] MEDS: Enoxaparin 40 mg Syringe SC SCH (08:47)
[2018-07-26] MEDS ORDERED: cefTRIAXone IV 1 gm in Dextros 50 ML BAG IVPB SCH (09:00)
--- NOTE | 2018-07-26 21:03 | CP.PCM.HP ---
History of Present Illness - History of Present Illness History of Present Illness: 83 y/o female with a PMHx of HTN and asthma presents to the ED with c/o of right sided abdominal pain x 1 week. Patient reports pain has been worsening since onset and is associated with lack of appetite, poor PO intake, dysuria, frequency, nausea and one episode of shaking chills today. Denies hematuria, vomiting, fever, diarrhea and constipation. C/O loss of weight secondary to poor appetite and pain in the abdomen. She presented with renal stones and hydronephrosis. She well responded to rx. Will f/u in TCU. Present on Admission - Present on Admission Any Indicators Present on Admission: No Review of Systems - Constitutional Constitutional: As Per HPI - Cardiovascular Cardiovascular: As Per HPI - Respiratory Respiratory: As Per HPI - Gastrointestinal Gastrointestinal: As Per HPI - Musculoskeletal Musculoskeletal: As Per HPI - Integumentary Integumentary: As Per HPI - Neurological Neurological: As Per HPI - Psychiatric Psychiatric: As Per HPI Past Patient History - Past Medical History & Family History Past Medical History?: Yes - Past Social History Smoking Status: Never Smoked - CARDIAC Hx Congestive Heart Failure: No Hx Hypercholesterolemia: Yes Hx Hypertension: Yes - PULMONARY Hx Asthma: Yes Hx Chronic Obstructive Pulmonary Disease (COPD): No - NEUROLOGICAL Hx Neurological Disorder: No HX Cerebrovascular Accident: No - HEENT Hx HEENT Problems: Yes Hx Cataracts: Yes Hx Deafness: Yes - RENAL Hx Chronic Kidney Disease: No - ENDOCRINE/METABOLIC Hx Hypothyroidism: No - HEMATOLOGICAL/ONCOLOGICAL Hx Blood Disorders: No Hx AIDS: No Hx Hepatitis C: No Hx Human Immunodeficiency Virus (HIV): No - INTEGUMENTARY Hx Dermatological Problems: No - MUSCULOSKELETAL/RHEUMATOLOGICAL Hx Arthritis: No Hx Falls: Yes Hx Rheumatoid Arthritis: No - GASTROINTESTINAL Hx Gastrointestinal Disorders: Yes Hx Gastroesophageal Reflux: Yes - GENITOURINARY/GYNECOLOGICAL Hx Genitourinary Disorders: No - PSYCHIATRIC Hx Psychophysiologic Disorder: No Hx Substance Use: No - SURGICAL HISTORY Hx Appendectomy: Yes Hx Coronary Artery Bypass Graft: No - ANESTHESIA Hx Anesthesia: Yes Hx Anesthesia Reactions: No Hx Malignant Hyperthermia: No Meds Allergies/Adverse Reactions: Allergies Allergy/AdvReac Type Severity Reaction Status Date / Time No Known Allergies Allergy Verified 07/25/18 15:24 Physical Exam - Constitutional Appears: Cachectic, Chronically Ill - Head Exam Head Exam: ATRAUMATIC, NORMAL INSPECTION, NORMOCEPHALIC - Eye Exam Eye Exam: Normal appearance - ENT Exam ENT Exam: Normal Exam - Neck Exam Neck exam: Positive for: Full Rom - Respiratory Exam Respiratory Exam: Decreased Breath Sounds - Cardiovascular Exam Cardiovascular Exam: REGULAR RHYTHM, +S1, +S2 - GI/Abdominal Exam GI & Abdominal Exam: Normal Bowel Sounds - Extremities Exam Extremities exam: Positive for: normal inspection - Neurological Exam Neurological exam: Alert, CN II-XII Intact, Oriented x3 - Psychiatric Exam Psychiatric exam: Flat Affect Results - Vital Signs Recent Vital Signs: Last Vital Signs Temp 97.4 F L 07/26/18 20:19 Pulse 78 07/26/18 20:19 Resp 18 07/26/18 20:19 BP 140/70 07/26/18 20:19 Pulse Ox 97 07/26/18 20:19 Assessment & Plan (1) Abdominal pain Status: Resolved (2) Cachexia Status: Acute (3) Debility Status: Acute (4) Failure to thrive Status: Acute (5) Hydronephrosis concurrent with and due to calculi of kidney and ureter Status: Chronic (6) Ovarian cyst Status: Acute (7) UTI (urinary tract infection) Status: Acute (8) Vitamin B12 deficiency Status: Acute (9) Bronchial asthma Status: Chronic Priority: Medium - Assessment and Plan (Free Text) Plan: As pre orders
[2018-07-27 07:57] LABS: BASO % 0.7 % (0.0-2.0); EOS # 0.2 K/uL (0.0-0.7); EOS % 2.3 % (0.0-4.0); HEMOGLOBIN 11.8 g/dL (12.0-16.0); LYMPH # 1.4 K/uL (1.0-4.3); MEAN CELL VOLUME 82.1 fl (81.0-99.0); MEAN CORPUSCULAR HEMOGLOBIN 27.5 pg (27.0-31.0); MEAN CORPUSCULAR HGB CONC 33.6 g/dL (33.0-37.0); MEAN PLATELET VOLUME 8.7 fl (7.2-11.7); MONO # 0.7 K/uL (0.0-0.8); MONO % 9.9 % (0.0-10.0); NEUT # 4.4 K/uL (1.8-7.0); NEUT % 66.1 % (50.0-75.0); NRBC % 0.1 % (0.0-0.0); RBC 4.28 Mil/uL (3.80-5.20); RED CELL DISTRIBUTION WIDTH 16.8 % (11.5-14.5); WHITE BLOOD COUNT 6.7 K/uL (4.8-10.8)
[2018-07-27 08:20] LABS: BLOOD UREA NITROGEN 19 mg/dl (7-17); CALCIUM 8.9 mg/dL (8.4-10.2); GFR NON-AFRICAN AMERICAN > 60
[2018-07-27] MEDS: Enoxaparin 40 mg Syringe SC SCH (08:47)
--- NOTE | 2018-07-27 14:05 | CP.PCM.CON ---
History of Present Illness - History of Present Illness History of Present Illness: 83 y/o female with a PMHx of HTN and asthma presents to TCU for ongoing rx of pyelonephritis right side Recently came to the ED for evaluation of right sided abdominal pain, ongoing for one week. Patient reports pain has been worsening since onset and is associated with lack of appetite, poor PO intake, dysuria, frequency, nausea and one episode of shaking chills today. Denies hematuria, vomiting, fever, diarrhea and constipation. Was culture + for E Coli Seen by has large right pelvic Cyst refused surgery in past Now in TCU for ongoing IV antibiotics still c/o pain right side but less CT chest/ abd pelvis reviewed - Medical History PMH: Asthma, HTN, Hypercholesterolemia Denies: Arthritis, CHF, COPD, Hypothyroidism, Chronic Kidney Disease, Rheumatoid Arthritis Review of Systems - Review of Systems All systems: reviewed and no additional remarkable complaints except - Constitutional Constitutional: As Per HPI, Anorexia, Chills, Malaise - EENT Eyes: absent: As Per HPI, Blind Spots, Blurred Vision, Change in Vision, Decreased Night Vision, Diplopia, Discharge, Dry Eye, Exophthalmos, Floaters, Irritation, Itchy Eyes, Loss of Peripheral Vision, Pain, Photophobia, Requires Corrective Lenses, Sees Flashes, Spots in Vision, Tunnel Vision, Other Visual Disturbances, Loss of Vision, Other Ears: absent: As Per HPI, Decreased Hearing, Ear Discharge, Ear Pain, Tinnitus, Abnormal Hearing, Disequilibrium, Dizziness, Other Nose/Mouth/Throat: absent: As Per HPI, Epistaxis, Nasal Congestion, Nasal Discharge, Nasal Obstruction, Nasal Trauma, Nose Pain, Post Nasal Drip, Sinus Pain, Sinus Pressure, Bleeding Gums, Change in Voice, Dental Pain, Dry Mouth, Dysphagia, Halitosis, Hoarsness, Lip Swelling, Mouth Lesions, Mouth Pain, Odynophagia, Sore Throat, Throat Swelling, Tongue Swelling, Facial Pain, Neck Pain, Neck Mass, Other - Breasts Breasts: absent: As Per HPI, Change in Shape, Mass, Pain, Nipple Discharge, Nipple Inversion, Skin Changes, Swelling, Other - Cardiovascular Cardiovascular: absent: As Per HPI, Acrocyanosis, Chest Pain, Chest Pain at Rest , Chest Pain with Activity, Claudication, Diaphoresis, Dyspnea, Dyspnea on Exertion, Edema, Irregular Heart Rhythm, Pain Radiating to Arm/Neck/Jaw, Leg Edema, Leg Ulcers, Lightheadedness, Orthopnea, Palpitations, Paroxysmal Nocturnal Dyspnea, Pedal Edema, Radiating Pain, Rapid Heart Rate, Slow Heart Rate, Syncope, Other - Gastrointestinal Gastrointestinal: As Per HPI, Abdominal Pain. absent: Change in Bowel Habits - Genitourinary Genitourinary: As Per HPI - Reproductive: Female Reproductive:Female: absent: As Per HPI, Amenorrhea, Amenorrhea/ Control, Currently Menstual, Cycle <21 Days, Cycle >35 Days, Cycle Variable, Menses 1-7 Days, Menses >/= 8 Days, Menses Variable, Cycle > 4 Weeks Between, No Menses for 6 Months, Heavy Menses, Light Menses, Normal Menses, Spotting Between Cycles , S/P Hysterectomy, Menopausal, Post Menopausal, Premenarche, Abnormal Vaginal Bleeding, Dysmenorrhea, Dyspareunia, Genital Lesions, Genital Pruritis, Pelvic Pain, Prolapse Symptoms, Sexual Dysfunction, Vaginal Discharge, Vaginal Dryness , Vaginal Odor, Vaginal Pruritis, Other - Menstruation Menstruation: absent: As Per HPI, Amenorrhea, Amenorrhea/ Control, Currently Menstual, Cycle <21 Days, Cycle >35 Days, Cycle Variable, Menses 1-7 Days, Menses >/= 8 Days, Menses Variable, Cycle > 4 Weeks Between, No Menses for 6 Months, Heavy Menses, Light Menses, Normal Menses, Spotting Between Cycles , S/P Hysterectomy, Menopausal, Post Menopausal, Premenarche, Abnormal Vaginal Bleeding, Dysmenorrhea, Other - Musculoskeletal Musculoskeletal: absent: As Per HPI, Abnormal Gait, Arthralgias, Atrophy, Back Pain, Deformity, Joint Swelling, Limited Range of Motion, Loss of Height, Muscle Cramps, Muscle Weakness, Myalgias, Neck Pain, Numbness, Radiating Pain into Limb, Stiffness, Tingling, Other - Integumentary Integumentary: absent: As Per HPI, Acne, Alopecia, Bleeding Lesions, Change in Hair, Change in Nails, Change in Pigmentation, Changing Lesions, Dry Skin, Erythema, Furuncle, Hirsutism, Lesions, New Lesions, Non-Healing Lesions, Photosensitivity, Pruritus, Rash, Skin Pain, Skin Ulcer, Sores, Striae, Swelling , Unusual Bruising, Wounds, Jaundice, Other - Neurological Neurological: absent: As Per HPI, Abnormal Gait, Abnormal Hearing, Abnormal Movements, Abnormal Speech, Behavioral Changes, Burning Sensations, Confusion, Convulsions, Disequilibrium, Dizziness, Numbness, Focal Weakness, Frequent Falls , Headaches, Lack of Coordination, Loss of Vision, Memory Loss, Paresthesias, Radicular Pain, Restless Legs, Sensory Deficit, Syncope, Tingling, Tremor, Vertigo, Weakness, Other Visual Disturbances, Other - Psychiatric Psychiatric: absent: As Per HPI, Abnormal Sleep Pattern, Anhedonia, Anxiety, Auditory Hallucinations, Behavioral Changes, Change in Appetite, Change in Libido, Confusion, Depression, Difficulty Concentrating, Hallucinations, Homicidal Ideation, Hopelessness, Irritability, Memory Loss, Mood Swings, Panic Attacks, Paranoia, Suicidal Ideation, Visual Hallucinations, Tactile Hallucinations, Other - Endocrine Endocrine: absent: As Per HPI, Change in Body Appearance, Change in Libido, Cold Intolorance, Deepening of Voice, Excessive Sweating, Fatigue, Flushing, Heat Intolorance, Increase in Ring/Shoe/Hat Size, Palpitations, Polydipsia, Polyphagia, Polyuria, Other - Hematologic/Lymphatic Hematologic: absent: As Per HPI, Easy Bleeding, Easy Bruising, Lymphadenopathy, Other Past Patient History - Past Medical History & Family History Past Medical History?: Yes - Past Social History Smoking Status: Never Smoked - CARDIAC Hx Congestive Heart Failure: No Hx Hypercholesterolemia: Yes Hx Hypertension: Yes - PULMONARY Hx Asthma: Yes Hx Chronic Obstructive Pulmonary Disease (COPD): No - NEUROLOGICAL Hx Neurological Disorder: No HX Cerebrovascular Accident: No - HEENT Hx HEENT Problems: Yes Hx Cataracts: Yes Hx Deafness: Yes - RENAL Hx Chronic Kidney Disease: No - ENDOCRINE/METABOLIC Hx Hypothyroidism: No - HEMATOLOGICAL/ONCOLOGICAL Hx Blood Disorders: No Hx AIDS: No Hx Hepatitis C: No Hx Human Immunodeficiency Virus (HIV): No - INTEGUMENTARY Hx Dermatological Problems: No - MUSCULOSKELETAL/RHEUMATOLOGICAL Hx Arthritis: No Hx Falls: Yes Hx Rheumatoid Arthritis: No - GASTROINTESTINAL Hx Gastrointestinal Disorders: Yes Hx Gastroesophageal Reflux: Yes - GENITOURINARY/GYNECOLOGICAL Hx Genitourinary Disorders: No - PSYCHIATRIC Hx Psychophysiologic Disorder: No Hx Substance Use: No - SURGICAL HISTORY Hx Appendectomy: Yes Hx Coronary Artery Bypass Graft: No - ANESTHESIA Hx Anesthesia: Yes Hx Anesthesia Reactions: No Hx Malignant Hyperthermia: No Meds Allergies/Adverse Reactions: Allergies Allergy/AdvReac Type Severity Reaction Status Date / Time No Known Allergies Allergy Verified 07/25/18 15:24 - Medications Medications: Current Medications Albuterol (Ventolin Hfa 90 Mcg/Actuation (8 G)) 1 puff INH RQ6 PRN PRN Reason: Shortness of Breath Albuterol/Ipratropium (Duoneb 3 Mg/0.5 Mg (3 Ml) Ud) 3 ml INH RQ6 PRN PRN Reason: Shortness of Breath Carvedilol (Coreg) 3.125 mg PO BID [facility] Last Admin: 07/27/18 08:47 Dose: 3.125 mg Enoxaparin Sodium (Lovenox) 40 mg SC DAILY [facility] PRN Reason: Protocol Last Admin: 07/27/18 08:47 Dose: 40 mg Ceftriaxone Sodium 1 gm/ (Sodium Chloride) 100 mls @ 100 mls/hr IVPB DAILY [facility] Last Admin: 07/27/18 08:48 Dose: 100 mls/hr Loratadine (Claritin) 10 mg PO DAILY [facility] Last Admin: 07/27/18 08:47 Dose: 10 mg Montelukast Sodium (Singulair) 10 mg PO HS [facility] Last Admin: 07/26/18 21:18 Dose: 10 mg Physical Exam - Constitutional Appears: No Acute Distress, Cachectic, Chronically Ill - Head Exam Head Exam: ATRAUMATIC, NORMAL INSPECTION, NORMOCEPHALIC - Eye Exam Eye Exam: PERRL. absent: Scleral icterus - ENT Exam ENT Exam: Mucous Membranes Dry, Normal External Ear Exam, Normal Oropharynx, TM' s Normal Bilaterally - Neck Exam Neck exam: Negative for: Lymphadenopathy, Thyromegaly - Respiratory Exam Respiratory Exam: Decreased Breath Sounds, Clear to Auscultation Bilateral - Cardiovascular Exam Cardiovascular Exam: REGULAR RHYTHM, +S1, +S2 - GI/Abdominal Exam GI & Abdominal Exam: Diminished Bowel Sounds, Distended, Soft. absent: Organomegaly, Rebound, Rigid, Tenderness - Rectal Exam Rectal Exam: Deferred - Exam Exam: NORMAL INSPECTION - Extremities Exam Extremities exam: Positive for: pedal pulses present. Negative for: calf tenderness, pedal edema, tenderness - Back Exam Back exam: absent: CVA tenderness (L), CVA tenderness (R), paraspinal tenderness - Neurological Exam Neurological exam: Alert, CN II-XII Intact, Oriented x3, Reflexes Normal - Psychiatric Exam Psychiatric exam: Normal Mood - Skin Skin Exam: Dry, Intact Results - Vital Signs Recent Vital Signs: Last Vital Signs Temp 97.9 F 07/27/18 09:00 Pulse 77 07/27/18 09:00 Resp 17 07/27/18 09:00 BP 128/76 07/27/18 09:00 Pulse Ox 98 07/27/18 09:00 - Labs Result Diagrams: 07/27/18 06:20 07/27/18 06:20 Labs: Laboratory Results - last 24 hr 07/27/18 07/27/18 06:20 06:20 WBC 6.7 RBC 4.28 Hgb 11.8 L Hct 35.2 MCV 82.1 MCH 27.5 MCHC 33.6 RDW 16.8 H Plt Count 619 H D MPV 8.7 Neut % (Auto) 66.1 Lymph % (Auto) 21.0 [place] % (Auto) 9.9 Eos % (Auto) 2.3 Baso % (Auto) 0.7 Neut # (Auto) 4.4 Lymph # (Auto) 1.4 [place] # (Auto) 0.7 Eos # (Auto) 0.2 Baso # (Auto) 0.0 Sodium 138 Potassium 3.5 L Chloride 100 Carbon Dioxide 34 H Anion Gap 8 L BUN 19 H Creatinine 0.5 L Est GFR ( Amer) > 60 Est GFR (Non-Af Amer) > 60 Random Glucose 104 Calcium 8.9 Assessment & Plan (1) UTI (urinary tract infection) Status: Acute (2) Cachexia Status: Acute (3) Debility Status: Acute (4) Failure to thrive in adult Status: Acute - Assessment and Plan (Free Text) Assessment: cont iv rx for UTI/ pyelo Gu follow up re cyst nutritional support PT/OT
--- NOTE | 2018-07-27 19:25 | CP.PCM.PN ---
Subjective - Date & Time of Evaluation Date of Evaluation: 07/27/18 Time of Evaluation: 19:24 - Subjective Subjective: At present comfortable, at times c/o same rt flank pain Objective - Vital Signs/Intake and Output Vital Signs (last 24 hours): Temp Pulse Resp BP Pulse Ox 97.9 F 72 17 143/70 98 07/27/18 09:00 07/27/18 17:14 07/27/18 09:00 07/27/18 17:14 07/27/18 09:00 - Medications Medications: Current Medications Albuterol (Ventolin Hfa 90 Mcg/Actuation (8 G)) 1 puff INH RQ6 PRN PRN Reason: Shortness of Breath Albuterol/Ipratropium (Duoneb 3 Mg/0.5 Mg (3 Ml) Ud) 3 ml INH RQ6 PRN PRN Reason: Shortness of Breath Carvedilol (Coreg) 3.125 mg PO BID [facility] Last Admin: 07/27/18 17:14 Dose: 3.125 mg Enoxaparin Sodium (Lovenox) 40 mg SC DAILY [facility] PRN Reason: Protocol Last Admin: 07/27/18 08:47 Dose: 40 mg Ceftriaxone Sodium 1 gm/ (Sodium Chloride) 100 mls @ 100 mls/hr IVPB DAILY [facility] Last Admin: 07/27/18 08:48 Dose: 100 mls/hr Loratadine (Claritin) 10 mg PO DAILY [facility] Last Admin: 07/27/18 08:47 Dose: 10 mg Montelukast Sodium (Singulair) 10 mg PO [facility] Last Admin: 07/26/18 21:18 Dose: 10 mg - Labs Labs: 07/27/18 06:20 07/27/18 06:20 - Constitutional Appears: Cachectic, Chronically Ill - Head Exam Head Exam: ATRAUMATIC, NORMAL INSPECTION, NORMOCEPHALIC - Eye Exam Eye Exam: Normal appearance - ENT Exam ENT Exam: Mucous Membranes Moist - Neck Exam Neck Exam: Full ROM - Respiratory Exam Respiratory Exam: Clear to Ausculation Bilateral - Cardiovascular Exam Cardiovascular Exam: REGULAR RHYTHM, +S1, +S2 - GI/Abdominal Exam GI & Abdominal Exam: Soft, Normal Bowel Sounds - Neurological Exam Neurological Exam: Alert, Awake, CN II-XII Intact, Normal Gait - Psychiatric Exam Psychiatric exam: Flat Affect - Skin Skin Exam: Pallor Assessment and Plan (1) Abdominal pain Status: Resolved (2) Cachexia Status: Acute (3) Debility Status: Acute (4) Failure to thrive Status: Acute (5) Hydronephrosis concurrent with and due to calculi of kidney and ureter Status: Chronic (6) Ovarian cyst Status: Acute (7) UTI (urinary tract infection) Status: Acute (8) Vitamin B12 deficiency Status: Acute (9) Bronchial asthma Status: Chronic
[2018-07-28] MEDS: Enoxaparin 40 mg Syringe SC SCH (08:31)
[2018-07-29] MEDS: Enoxaparin 40 mg Syringe SC SCH (08:22)
--- NOTE | 2018-07-29 11:23 | CP.PCM.CON ---
History of Present Illness - History of Present Illness History of Present Illness: Asked to evaluate this 83 year old Greek speaking female with a long standing history of Asthma and 'bronchial ' disease. She is a never smoker and denies any work exposures to asbestos, dusts or toxic chemicals. She does admit to dyspnea on exertion, but is unable to tell me how far she is able to walk before becoming symptomatic. Denies cough or sputum production presently. Was admitted with acute pyelonephritis and may require ureteral stent and lithotripsy because of right renal stone. Past Patient History - Past Medical History & Family History Past Medical History?: Yes Pertinent Family History: No family members with respiratory disease. - Past Social History Smoking Status: Never Smoked Chewing Tobacco Use: No Cigar Use: No Alcohol: None Drugs: Denies - CARDIAC Hx Hypercholesterolemia: Yes Hx Hypertension: Yes - PULMONARY Hx Asthma: Yes Hx Bronchitis: Yes - NEUROLOGICAL Hx Neurological Disorder: No - HEENT Hx Cataracts: Yes Hx Deafness: Yes - RENAL Hx Kidney Stones: Yes (present episode) Hx Pyelonephritis: Yes (present episode) - ENDOCRINE/METABOLIC Hx Endocrine Disorders: No - HEMATOLOGICAL/ONCOLOGICAL Hx Blood Disorders: No Hx Human Immunodeficiency Virus (HIV): No - INTEGUMENTARY Hx Dermatological Problems: No - MUSCULOSKELETAL/RHEUMATOLOGICAL Hx Arthritis: No Hx Falls: Yes Hx Rheumatoid Arthritis: No - GASTROINTESTINAL Hx Gastroesophageal Reflux: Yes - GENITOURINARY/GYNECOLOGICAL Hx Genitourinary Disorders: No - PSYCHIATRIC Hx Psychophysiologic Disorder: No Hx Substance Use: No - SURGICAL HISTORY Hx Appendectomy: Yes - ANESTHESIA Hx Anesthesia: Yes Hx Anesthesia Reactions: No Hx Malignant Hyperthermia: No Meds Allergies/Adverse Reactions: Allergies Allergy/AdvReac Type Severity Reaction Status Date / Time No Known Allergies Allergy Verified 07/25/18 15:24 - Medications Medications: Current Medications Acetaminophen (Tylenol 325mg Tab) 325 mg PO Q6 PRN PRN Reason: Pain, moderate (4-7) Last Admin: 07/28/18 08:35 Dose: 325 mg Albuterol (Ventolin Hfa 90 Mcg/Actuation (8 G)) 1 puff INH RQ6 PRN PRN Reason: Shortness of Breath Albuterol/Ipratropium (Duoneb 3 Mg/0.5 Mg (3 Ml) Ud) 3 ml INH RQ6 PRN PRN Reason: Shortness of Breath Carvedilol (Coreg) 3.125 mg PO BID [facility] Last Admin: 07/29/18 08:22 Dose: 3.125 mg Enoxaparin Sodium (Lovenox) 40 mg SC DAILY [facility]; Protocol Last Admin: 07/29/18 08:22 Dose: 40 mg Ceftriaxone Sodium 1 gm/ (Sodium Chloride) 100 mls @ 100 mls/hr IVPB DAILY@1700 [facility] Loratadine (Claritin) 10 mg PO DAILY [facility] Last Admin: 07/29/18 08:23 Dose: 10 mg Montelukast Sodium (Singulair) 10 mg PO HS [facility] Last Admin: 07/28/18 21:38 Dose: 10 mg Physical Exam - Additional Findings Additional findings: Thin female seated in bedside chair. Seems very [place], but answers questions appropriately. No cyanosis or dependant edema, no calf tenderness. Neck is supple and trachea is midline. No grossly palpable lymphadenopathy. No dullness on chest percussion. Breath sounds seem slightly distant w/o audible wheezes. Medium rales are present posteriorly in the lower lobes. No bronchial breath sounds or egophony. Heart sounds are well heard, regular rhythm, faint systolic murmur LSB. 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 The origin for the bronchiectasis is unclear presently (poor historian). Will check Quantiferon TB GOLD and alpha 1 antitrypsin levels. She appears adequately stable to undergo urological procedure if needed. - Date & Time Date: 07/29/18 Time: 11:23
--- NOTE | 2018-07-29 12:08 | CP.PCM.CON ---
History of Present Illness - History of Present Illness History of Present Illness: THE PATIENT IS AN 83 YEAR OLD FEMALE WHO HAS A HISTORY OF HYPERTENSION AND ASTHMA SHE ALSO HAS A RIGHT URETERAL STONE AND WILL BE UNDERGOING A CYSTOSCOPY FOR A URETERAL STENT INSERTION. SHE ALSO HAS A UTI AND IS ON ANTIBIOTICS. CARD IOLOGY HAS BEEN ASKED TO CLEAR HER FOR THE PROCEDURE. SHE DENIES ANY CARDIAC HISTORY AND DENIES CHEST PAIN OR PALPITATIONS. Past Patient History - Past Medical History & Family History Past Medical History?: Yes - Past Social History Smoking Status: Never Smoked - CARDIAC Hx Congestive Heart Failure: No Hx Hypercholesterolemia: Yes Hx Hypertension: Yes - PULMONARY Hx Asthma: Yes Hx Chronic Obstructive Pulmonary Disease (COPD): No - NEUROLOGICAL Hx Neurological Disorder: No HX Cerebrovascular Accident: No - HEENT Hx HEENT Problems: Yes Hx Cataracts: Yes Hx Deafness: Yes - RENAL Hx Chronic Kidney Disease: No - ENDOCRINE/METABOLIC Hx Hypothyroidism: No - HEMATOLOGICAL/ONCOLOGICAL Hx Blood Disorders: No Hx AIDS: No Hx Hepatitis C: No Hx Human Immunodeficiency Virus (HIV): No - INTEGUMENTARY Hx Dermatological Problems: No - MUSCULOSKELETAL/RHEUMATOLOGICAL Hx Arthritis: No Hx Falls: Yes Hx Rheumatoid Arthritis: No - GASTROINTESTINAL Hx Gastrointestinal Disorders: Yes Hx Gastroesophageal Reflux: Yes - GENITOURINARY/GYNECOLOGICAL Hx Genitourinary Disorders: No - PSYCHIATRIC Hx Psychophysiologic Disorder: No Hx Substance Use: No - SURGICAL HISTORY Hx Appendectomy: Yes Hx Coronary Artery Bypass Graft: No - ANESTHESIA Hx Anesthesia: Yes Hx Anesthesia Reactions: No Hx Malignant Hyperthermia: No Meds Allergies/Adverse Reactions: Allergies Allergy/AdvReac Type Severity Reaction Status Date / Time No Known Allergies Allergy Verified 07/25/18 15:24 - Medications Medications: Current Medications Acetaminophen (Tylenol 325mg Tab) 325 mg PO Q6 PRN PRN Reason: Pain, moderate (4-7) Last Admin: 07/28/18 08:35 Dose: 325 mg Albuterol (Ventolin Hfa 90 Mcg/Actuation (8 G)) 1 puff INH RQ6 PRN PRN Reason: Shortness of Breath Albuterol/Ipratropium (Duoneb 3 Mg/0.5 Mg (3 Ml) Ud) 3 ml INH RQ6 PRN PRN Reason: Shortness of Breath Carvedilol (Coreg) 3.125 mg PO BID [facility] Last Admin: 07/29/18 08:22 Dose: 3.125 mg Enoxaparin Sodium (Lovenox) 40 mg SC DAILY [facility] BEDS AT [facility]; Protocol Last Admin: 07/29/18 08:22 Dose: 40 mg Ceftriaxone Sodium 1 gm/ (Sodium Chloride) 100 mls @ 100 mls/hr IVPB DAILY@1700 [facility] Loratadine (Claritin) 10 mg PO DAILY [facility] 234 BEDS AT [facility] Last Admin: 07/29/18 08:23 Dose: 10 mg Montelukast Sodium (Singulair) 10 mg PO HS [facility] 234 BEDS AT [facility] Last Admin: 07/28/18 21:38 Dose: 10 mg Physical Exam - Respiratory Exam Respiratory Exam: Decreased Breath Sounds - Cardiovascular Exam Cardiovascular Exam: REGULAR RHYTHM, +S1, +S2 - Extremities Exam Extremities exam: Positive for: normal inspection - Additional Findings Additional findings: EKG NSR, LAE ECHO WITH GOOD LV FUNCTION, MODERATE TR WITH MODERATELY ELEVATED PASP Results - Vital Signs Recent Vital Signs: Last Vital Signs Temp 97.3 F L 07/29/18 09:00 Pulse 83 07/29/18 09:00 Resp 20 07/29/18 09:00 BP 137/68 07/29/18 09:00 Pulse Ox 97 07/29/18 09:00 - Labs Result Diagrams: 07/27/18 06:20 07/27/18 06:20 Assessment & Plan - Assessment and Plan (Free Text) Assessment: HYPERTENSION ASTHMA STABLE CARDIAC STATUS Plan: OK TO PROCEED WITH CYSTOSCOPY AND STENT INSERTION FROM THE CARDIAC VIEWPOINT
--- NOTE | 2018-07-29 13:39 | CP.PCM.PN ---
Subjective - Date & Time of Evaluation Date of Evaluation: 07/29/18 Time of Evaluation: 13:39 - Subjective Subjective: Still c/o rt flank pain Objective - Vital Signs/Intake and Output Vital Signs (last 24 hours): Temp Pulse Resp BP Pulse Ox 97.3 F L 83 20 137/68 97 07/29/18 09:00 07/29/18 09:00 07/29/18 09:00 07/29/18 09:00 07/29/18 09:00 - Medications Medications: Current Medications Acetaminophen (Tylenol 325mg Tab) 325 mg PO Q6 PRN PRN Reason: Pain, moderate (4-7) Last Admin: 07/28/18 08:35 Dose: 325 mg Albuterol (Ventolin Hfa 90 Mcg/Actuation (8 G)) 1 puff INH RQ6 PRN PRN Reason: Shortness of Breath Albuterol/Ipratropium (Duoneb 3 Mg/0.5 Mg (3 Ml) Ud) 3 ml INH RQ6 PRN PRN Reason: Shortness of Breath Carvedilol (Coreg) 3.125 mg PO BID [facility] Last Admin: 07/29/18 08:22 Dose: 3.125 mg Enoxaparin Sodium (Lovenox) 40 mg SC DAILY [facility]; Protocol Last Admin: 07/29/18 08:22 Dose: 40 mg Ceftriaxone Sodium 1 gm/ (Sodium Chloride) 100 mls @ 100 mls/hr IVPB DAILY@1700 [facility] Loratadine (Claritin) 10 mg PO DAILY [facility] Last Admin: 07/29/18 08:23 Dose: 10 mg Montelukast Sodium (Singulair) 10 mg PO HS [facility] Last Admin: 07/28/18 21:38 Dose: 10 mg - Labs Labs: 07/27/18 06:20 07/27/18 06:20 - Constitutional Appears: Cachectic, Chronically Ill - Head Exam Head Exam: ATRAUMATIC, NORMAL INSPECTION, NORMOCEPHALIC - Eye Exam Eye Exam: Normal appearance - ENT Exam ENT Exam: Mucous Membranes Moist - Cardiovascular Exam Cardiovascular Exam: REGULAR RHYTHM - GI/Abdominal Exam GI & Abdominal Exam: Tenderness - Extremities Exam Extremities Exam: Normal Inspection - Neurological Exam Neurological Exam: Alert, Awake, CN II-XII Intact, Oriented x3 - Psychiatric Exam Psychiatric exam: Flat Affect - Skin Skin Exam: Normal Color Assessment and Plan (1) Abdominal pain Status: Resolved (2) Cachexia Status: Acute (3) Debility Status: Acute (4) Failure to thrive Status: Acute (5) Hydronephrosis concurrent with and due to calculi of kidney and ureter Status: Chronic (6) Ovarian cyst Status: Acute (7) UTI (urinary tract infection) Status: Acute (8) Vitamin B12 deficiency Status: Acute (9) Bronchial asthma Status: Chronic - Assessment and Plan (Free Text) Plan: Continue present rx.
[2018-07-30 07:24] LABS: BASO # 0.1 K/uL (0.0-0.2); BASO % 1.5 % (0.0-2.0); EOS # 0.1 K/uL (0.0-0.7); EOS % 2.6 % (0.0-4.0); HEMOGLOBIN 10.5 g/dL (12.0-16.0); LYMPH # 1.2 K/uL (1.0-4.3); LYMPH % 30.3 % (20.0-40.0); MEAN CORPUSCULAR HEMOGLOBIN 26.8 pg (27.0-31.0); MEAN CORPUSCULAR HGB CONC 32.6 g/dL (33.0-37.0); MEAN PLATELET VOLUME 8.5 fl (7.2-11.7); MONO # 0.6 K/uL (0.0-0.8); MONO % 15.1 % (0.0-10.0); NEUT # 2.1 K/uL (1.8-7.0); NEUT % 50.5 % (50.0-75.0); NRBC % 0.2 % (0.0-0.0); RBC 3.93 Mil/uL (3.80-5.20); RED CELL DISTRIBUTION WIDTH 17.5 % (11.5-14.5); WHITE BLOOD COUNT 4.1 K/uL (4.8-10.8)
[2018-07-30 07:38] LABS: BLOOD UREA NITROGEN 18 mg/dl (7-17); CALCIUM 8.9 mg/dL (8.4-10.2); GFR NON-AFRICAN AMERICAN > 60
[2018-07-30] MEDS: Enoxaparin 40 mg Syringe SC SCH (08:21)
--- NOTE | 2018-07-30 10:28 | CP.PCM.PN ---
Subjective - Date & Time of Evaluation Date of Evaluation: 07/30/18 Time of Evaluation: 10:00 - Subjective Subjective: NO CHEST PAIN OR SOB Objective - Vital Signs/Intake and Output Vital Signs (last 24 hours): Temp Pulse Resp BP Pulse Ox 97.7 F 84 18 135/75 98 07/30/18 09:00 07/30/18 09:00 07/30/18 09:00 07/30/18 09:00 07/30/18 09:00 - Medications Medications: Current Medications Acetaminophen (Tylenol 325mg Tab) 325 mg PO Q6 PRN PRN Reason: Pain, moderate (4-7) Last Admin: 07/28/18 08:35 Dose: 325 mg Albuterol (Ventolin Hfa 90 Mcg/Actuation (8 G)) 1 puff INH RQ6 PRN PRN Reason: Shortness of Breath Albuterol/Ipratropium (Duoneb 3 Mg/0.5 Mg (3 Ml) Ud) 3 ml INH RQ6 PRN PRN Reason: Shortness of Breath Carvedilol (Coreg) 3.125 mg PO BID [facility] Last Admin: 07/30/18 08:20 Dose: 3.125 mg Enoxaparin Sodium (Lovenox) 40 mg SC DAILY [facility]; Protocol Last Admin: 07/30/18 08:21 Dose: 40 mg Ceftriaxone Sodium 1 gm/ (Sodium Chloride) 100 mls @ 100 mls/hr IVPB DAILY@1700 [facility] Last Admin: 07/29/18 16:10 Dose: 100 mls/hr Loratadine (Claritin) 10 mg PO DAILY [facility] Last Admin: 07/30/18 08:20 Dose: 10 mg Montelukast Sodium (Singulair) 10 mg PO HS [facility] Last Admin: 07/29/18 21:37 Dose: 10 mg - Labs Labs: 07/30/18 07:00 07/30/18 07:00 - Respiratory Exam Respiratory Exam: Clear to Ausculation Bilateral - Cardiovascular Exam Cardiovascular Exam: REGULAR RHYTHM, +S1, +S2 - Extremities Exam Extremities Exam: Normal Inspection Assessment and Plan - Assessment and Plan (Free Text) Assessment: STABLE CARDIAC STATUS ASTHMA RIGHT URETERAL STONE Plan: FOR CYSTOSCOPY AND URETERAL STENT INSETION IN THE NEAR FUTURE
--- NOTE | 2018-07-30 11:17 | CP.PCM.PN ---
Subjective - Date & Time of Evaluation Date of Evaluation: 07/30/18 Time of Evaluation: 11:15 - Subjective Subjective: The patient remains clinically stable, but with her underlying pulmonary disease it would be recommended to switch her beta-kaila therapy to a selective one if it needs to be continued. Objective - Vital Signs/Intake and Output Vital Signs (last 24 hours): Temp Pulse Resp BP Pulse Ox 97.7 F 84 18 135/75 98 07/30/18 09:00 07/30/18 09:00 07/30/18 09:00 07/30/18 09:00 07/30/18 09:00 - Medications Medications: Current Medications Acetaminophen (Tylenol 325mg Tab) 325 mg PO Q6 PRN PRN Reason: Pain, moderate (4-7) Last Admin: 07/28/18 08:35 Dose: 325 mg Albuterol (Ventolin Hfa 90 Mcg/Actuation (8 G)) 1 puff INH RQ6 PRN PRN Reason: Shortness of Breath Albuterol/Ipratropium (Duoneb 3 Mg/0.5 Mg (3 Ml) Ud) 3 ml INH RQ6 PRN PRN Reason: Shortness of Breath Carvedilol (Coreg) 3.125 mg PO BID [facility] Last Admin: 07/30/18 08:20 Dose: 3.125 mg Enoxaparin Sodium (Lovenox) 40 mg SC DAILY [facility]; Protocol Last Admin: 07/30/18 08:21 Dose: 40 mg Ceftriaxone Sodium 1 gm/ (Sodium Chloride) 100 mls @ 100 mls/hr IVPB DAILY@1700 [facility] Last Admin: 07/29/18 16:10 Dose: 100 mls/hr Loratadine (Claritin) 10 mg PO DAILY [facility] Last Admin: 07/30/18 08:20 Dose: 10 mg Montelukast Sodium (Singulair) 10 mg PO HS [facility] Last Admin: 07/29/18 21:37 Dose: 10 mg - Labs Labs: 07/30/18 07:00 07/30/18 07:00 Assessment and Plan (1) COPD (chronic obstructive pulmonary disease) Status: Chronic (2) Bronchiectasis Status: Chronic (3) Bronchial asthma Status: Chronic
--- NOTE | 2018-07-30 11:20 | CP.PCM.PN ---
Subjective - Date & Time of Evaluation Date of Evaluation: 07/30/18 Time of Evaluation: 07:00 - Subjective Subjective: afebrile more alert NAD Objective - Vital Signs/Intake and Output Vital Signs (last 24 hours): Temp Pulse Resp BP Pulse Ox 97.7 F 84 18 135/75 98 07/30/18 09:00 07/30/18 09:00 07/30/18 09:00 07/30/18 09:00 07/30/18 09:00 - Medications Medications: Current Medications Acetaminophen (Tylenol 325mg Tab) 325 mg PO Q6 PRN PRN Reason: Pain, moderate (4-7) Last Admin: 07/28/18 08:35 Dose: 325 mg Albuterol (Ventolin Hfa 90 Mcg/Actuation (8 G)) 1 puff INH RQ6 PRN PRN Reason: Shortness of Breath Albuterol/Ipratropium (Duoneb 3 Mg/0.5 Mg (3 Ml) Ud) 3 ml INH RQ6 PRN PRN Reason: Shortness of Breath Carvedilol (Coreg) 3.125 mg PO BID [facility] Last Admin: 07/30/18 08:20 Dose: 3.125 mg Enoxaparin Sodium (Lovenox) 40 mg SC DAILY [facility]; Protocol Last Admin: 07/30/18 08:21 Dose: 40 mg Ceftriaxone Sodium 1 gm/ (Sodium Chloride) 100 mls @ 100 mls/hr IVPB DAILY@1700 [facility] Last Admin: 07/29/18 16:10 Dose: 100 mls/hr Loratadine (Claritin) 10 mg PO DAILY [facility] Last Admin: 07/30/18 08:20 Dose: 10 mg Montelukast Sodium (Singulair) 10 mg PO HS [facility] Last Admin: 07/29/18 21:37 Dose: 10 mg - Labs Labs: 07/30/18 07:00 07/30/18 07:00 - Constitutional Appears: Non-toxic, Chronically Ill - Head Exam Head Exam: NORMOCEPHALIC - Eye Exam Eye Exam: PERRL - ENT Exam ENT Exam: Mucous Membranes Dry - Neck Exam Neck Exam: absent: Lymphadenopathy - Respiratory Exam Respiratory Exam: Decreased Breath Sounds - Cardiovascular Exam Cardiovascular Exam: REGULAR RHYTHM - GI/Abdominal Exam GI & Abdominal Exam: Distended, Soft - Rectal Exam Rectal Exam: Deferred - Exam Exam: NORMAL INSPECTION - Extremities Exam Extremities Exam: absent: Pedal Edema - Back Exam Back Exam: absent: CVA tenderness (L), CVA tenderness (R) - Neurological Exam Neurological Exam: Alert, Awake Assessment and Plan (1) UTI (urinary tract infection) Status: Acute (2) Cachexia Status: Acute (3) Debility Status: Acute (4) Failure to thrive in adult Status: Acute - Assessment and Plan (Free Text) Assessment: cont iv rx as ordered
--- NOTE | 2018-07-30 13:19 | CP.PCM.PN ---
Subjective - Date & Time of Evaluation Date of Evaluation: 07/30/18 Time of Evaluation: 13:19 - Subjective Subjective: Improving Objective - Vital Signs/Intake and Output Vital Signs (last 24 hours): Temp Pulse Resp BP Pulse Ox 97.7 F 84 18 135/75 98 07/30/18 09:00 07/30/18 09:00 07/30/18 09:00 07/30/18 09:00 07/30/18 09:00 - Medications Medications: Current Medications Acetaminophen (Tylenol 325mg Tab) 325 mg PO Q6 PRN PRN Reason: Pain, moderate (4-7) Last Admin: 07/28/18 08:35 Dose: 325 mg Albuterol (Ventolin Hfa 90 Mcg/Actuation (8 G)) 1 puff INH RQ6 PRN PRN Reason: Shortness of Breath Albuterol/Ipratropium (Duoneb 3 Mg/0.5 Mg (3 Ml) Ud) 3 ml INH RQ6 PRN PRN Reason: Shortness of Breath Carvedilol (Coreg) 3.125 mg PO BID [facility] Last Admin: 07/30/18 08:20 Dose: 3.125 mg Enoxaparin Sodium (Lovenox) 40 mg SC DAILY [facility]; Protocol Last Admin: 07/30/18 08:21 Dose: 40 mg Ceftriaxone Sodium 1 gm/ (Sodium Chloride) 100 mls @ 100 mls/hr IVPB DAILY@1700 [facility] Last Admin: 07/29/18 16:10 Dose: 100 mls/hr Loratadine (Claritin) 10 mg PO DAILY [facility] Last Admin: 07/30/18 08:20 Dose: 10 mg Montelukast Sodium (Singulair) 10 mg PO [facility] Last Admin: 07/29/18 21:37 Dose: 10 mg - Labs Labs: 07/30/18 07:00 07/30/18 07:00 - Constitutional Appears: Cachectic, Chronically Ill - Head Exam Head Exam: ATRAUMATIC, NORMAL INSPECTION, NORMOCEPHALIC - Eye Exam Eye Exam: Normal appearance Pupil Exam: PERRL - ENT Exam ENT Exam: Mucous Membranes Moist - Neck Exam Neck Exam: Full ROM - Respiratory Exam Respiratory Exam: Clear to Ausculation Bilateral - Cardiovascular Exam Cardiovascular Exam: REGULAR RHYTHM, +S1, +S2 - GI/Abdominal Exam GI & Abdominal Exam: Normal Bowel Sounds - Neurological Exam Neurological Exam: Alert, Awake, CN II-XII Intact, Normal Gait, Oriented x3 - Psychiatric Exam Psychiatric exam: Normal Affect - Skin Skin Exam: Normal Color Assessment and Plan (1) Abdominal pain Status: Resolved (2) Cachexia Status: Acute (3) Debility Status: Acute (4) Failure to thrive Status: Acute (5) Hydronephrosis concurrent with and due to calculi of kidney and ureter Status: Chronic (6) Ovarian cyst Status: Acute (7) UTI (urinary tract infection) Status: Acute (8) Vitamin B12 deficiency Status: Acute (9) Bronchial asthma Status: Chronic
[2018-07-31] MEDS: Enoxaparin 40 mg Syringe SC SCH (07:59)
[2018-07-31 09:20] VITALS: RESP 20; O2SAT 97
--- NOTE | 2018-07-31 10:15 | CP.PCM.PN ---
Subjective - Date & Time of Evaluation Date of Evaluation: 07/31/18 Time of Evaluation: 08:45 - Subjective Subjective: NO NEW COMPLAINTS Objective - Vital Signs/Intake and Output Vital Signs (last 24 hours): Temp Pulse Resp BP Pulse Ox 97.3 F L 75 20 143/77 97 07/31/18 09:00 07/31/18 09:00 07/31/18 09:00 07/31/18 09:00 07/31/18 09:00 - Medications Medications: Current Medications Acetaminophen (Tylenol 325mg Tab) 325 mg PO Q6 PRN PRN Reason: Pain, moderate (4-7) Last Admin: 07/28/18 08:35 Dose: 325 mg Albuterol (Ventolin Hfa 90 Mcg/Actuation (8 G)) 1 puff INH RQ6 PRN PRN Reason: Shortness of Breath Albuterol/Ipratropium (Duoneb 3 Mg/0.5 Mg (3 Ml) Ud) 3 ml INH RQ6 PRN PRN Reason: Shortness of Breath Carvedilol (Coreg) 3.125 mg PO BID [facility] Last Admin: 07/31/18 08:00 Dose: 3.125 mg Enoxaparin Sodium (Lovenox) 40 mg SC DAILY [facility]; Protocol Last Admin: 07/31/18 07:59 Dose: 40 mg Ceftriaxone Sodium 1 gm/ (Sodium Chloride) 100 mls @ 100 mls/hr IVPB DAILY@1700 [facility] Last Admin: 07/30/18 17:50 Dose: 100 mls/hr Loratadine (Claritin) 10 mg PO DAILY [facility] Last Admin: 07/31/18 07:59 Dose: 10 mg Montelukast Sodium (Singulair) 10 mg PO HS [facility] Last Admin: 07/30/18 21:20 Dose: 10 mg - Labs Labs: 07/30/18 07:00 07/30/18 07:00 - Respiratory Exam Respiratory Exam: Clear to Ausculation Bilateral - Cardiovascular Exam Cardiovascular Exam: REGULAR RHYTHM, +S1, +S2 - Extremities Exam Extremities Exam: Normal Inspection Assessment and Plan - Assessment and Plan (Free Text) Assessment: STABLE CARDIAC STATUS HYPERTENSION UTI RIGHT URETERAL STONE WITH HYDRONEPHROSIS ASTHMA Plan: CONTINUE ANTIBIOTICS, CARVEDILOL, LOVENOX AND PULMONARY MEDICATIONS
--- NOTE | 2018-07-31 10:22 | CP.PCM.PN ---
Subjective - Date & Time of Evaluation Date of Evaluation: 07/31/18 Time of Evaluation: 10:19 - Subjective Subjective: Patient was seen in the gym, seated in a chair comfortably. She does admit to some continued dry cough, but no SOB. On exam the breath sounds are well heard bilaterally w/o audible wheezing. There are occasional dry basal rales heard posteriorly in both lungs. Heart sounds are well heard with regular rhythm. No dependant edema or cyanosis. She has not been asking for any PRN bronchodilator rx. Remains clinically stable from a respiratory standpoint. Objective - Vital Signs/Intake and Output Vital Signs (last 24 hours): Temp Pulse Resp BP Pulse Ox 97.3 F L 75 20 143/77 97 07/31/18 09:00 07/31/18 09:00 07/31/18 09:00 07/31/18 09:00 07/31/18 09:00 - Medications Medications: Current Medications Acetaminophen (Tylenol 325mg Tab) 325 mg PO Q6 PRN PRN Reason: Pain, moderate (4-7) Last Admin: 07/28/18 08:35 Dose: 325 mg Albuterol (Ventolin Hfa 90 Mcg/Actuation (8 G)) 1 puff INH RQ6 PRN PRN Reason: Shortness of Breath Albuterol/Ipratropium (Duoneb 3 Mg/0.5 Mg (3 Ml) Ud) 3 ml INH RQ6 PRN PRN Reason: Shortness of Breath Carvedilol (Coreg) 3.125 mg PO BID [facility] Last Admin: 07/31/18 08:00 Dose: 3.125 mg Enoxaparin Sodium (Lovenox) 40 mg SC DAILY [facility]; Protocol Last Admin: 07/31/18 07:59 Dose: 40 mg Ceftriaxone Sodium 1 gm/ (Sodium Chloride) 100 mls @ 100 mls/hr IVPB DAILY@1700 [facility] Last Admin: 07/30/18 17:50 Dose: 100 mls/hr Loratadine (Claritin) 10 mg PO DAILY [facility] Last Admin: 07/31/18 07:59 Dose: 10 mg Montelukast Sodium (Singulair) 10 mg PO HS [facility] Last Admin: 07/30/18 21:20 Dose: 10 mg - Labs Labs: 07/30/18 07:00 07/30/18 07:00 Assessment and Plan (1) COPD (chronic obstructive pulmonary disease) Status: Chronic (2) Bronchiectasis Status: Chronic (3) Bronchial asthma Status: Chronic
--- NOTE | 2018-07-31 11:28 | CP.PCM.PN ---
Subjective - Date & Time of Evaluation Date of Evaluation: 07/31/18 Time of Evaluation: 13:11 - Subjective Subjective: Still c/o pain in the rt flank. Discussed the case wit Dr Lester. Patient for stent in am. Family and patient informed. Objective - Vital Signs/Intake and Output Vital Signs (last 24 hours): Temp Pulse Resp BP Pulse Ox 97.3 F L 75 20 143/77 97 07/31/18 09:00 07/31/18 09:00 07/31/18 09:00 07/31/18 09:00 07/31/18 09:00 - Medications Medications: Current Medications Acetaminophen (Tylenol 325mg Tab) 325 mg PO Q6 PRN PRN Reason: Pain, moderate (4-7) Last Admin: 07/28/18 08:35 Dose: 325 mg Albuterol (Ventolin Hfa 90 Mcg/Actuation (8 G)) 1 puff INH RQ6 PRN PRN Reason: Shortness of Breath Albuterol/Ipratropium (Duoneb 3 Mg/0.5 Mg (3 Ml) Ud) 3 ml INH RQ6 PRN PRN Reason: Shortness of Breath Carvedilol (Coreg) 3.125 mg PO BID [facility] Last Admin: 07/31/18 08:00 Dose: 3.125 mg Enoxaparin Sodium (Lovenox) 40 mg SC DAILY [facility]; Protocol Last Admin: 07/31/18 07:59 Dose: 40 mg Ceftriaxone Sodium 1 gm/ (Sodium Chloride) 100 mls @ 100 mls/hr IVPB DAILY@1700 [facility] Last Admin: 07/30/18 17:50 Dose: 100 mls/hr Loratadine (Claritin) 10 mg PO DAILY [facility] Last Admin: 07/31/18 07:59 Dose: 10 mg Montelukast Sodium (Singulair) 10 mg PO HS [facility] Last Admin: 07/30/18 21:20 Dose: 10 mg - Labs Labs: 07/30/18 07:00 07/30/18 07:00 - Constitutional Appears: Cachectic, Chronically Ill - Head Exam Head Exam: NORMAL INSPECTION - Eye Exam Eye Exam: Normal appearance - ENT Exam ENT Exam: Mucous Membranes Moist - Neck Exam Neck Exam: Full ROM - Respiratory Exam Respiratory Exam: Clear to Ausculation Bilateral - Cardiovascular Exam Cardiovascular Exam: REGULAR RHYTHM, +S1, +S2 - GI/Abdominal Exam GI & Abdominal Exam: Tenderness, Normal Bowel Sounds - Extremities Exam Extremities Exam: Full ROM - Back Exam Back Exam: NORMAL INSPECTION - Neurological Exam Neurological Exam: Alert, Awake, CN II-XII Intact, Oriented x3 - Skin Skin Exam: Normal Color Assessment and Plan (1) Abdominal pain Status: Resolved (2) Cachexia Status: Acute (3) Debility Status: Acute (4) Failure to thrive Status: Acute (5) Hydronephrosis concurrent with and due to calculi of kidney and ureter Status: Chronic (6) Ovarian cyst Status: Acute (7) UTI (urinary tract infection) Status: Acute (8) Vitamin B12 deficiency Status: Acute (9) Bronchial asthma Status: Chronic - Assessment and Plan (Free Text) Plan: As above.
[2018-07-31 12:46] LABS: BASO % 0.3 % (0.0-2.0); EOS # 0.1 K/uL (0.0-0.7); EOS % 2.2 % (0.0-4.0); LYMPH # 1.5 K/uL (1.0-4.3); LYMPH % 37.1 % (20.0-40.0); MEAN CELL VOLUME 83.3 fl (81.0-99.0); MEAN CORPUSCULAR HEMOGLOBIN 27.1 pg (27.0-31.0); MEAN CORPUSCULAR HGB CONC 32.5 g/dL (33.0-37.0); MONO # 0.6 K/uL (0.0-0.8); MONO % 14.1 % (0.0-10.0); NEUT # 1.9 K/uL (1.8-7.0); NEUT % 46.3 % (50.0-75.0); NRBC % 0.2 % (0.0-0.0); RBC 4.08 Mil/uL (3.80-5.20); RED CELL DISTRIBUTION WIDTH 17.6 % (11.5-14.5); WHITE BLOOD COUNT 4.2 K/uL (4.8-10.8)
[2018-07-31 13:02] LABS: BLOOD UREA NITROGEN 18 mg/dl (7-17); CALCIUM 9.3 mg/dL (8.4-10.2); GFR NON-AFRICAN AMERICAN > 60
[2018-07-31 20:31] VITALS: BP 140/76; PULSE 76; TEMP 97.9
--- NOTE | 2018-08-01 09:59 | CP.PCM.DIS ---
Provider - Provider Date of Admission: 07/25/18 15:24 Attending physician: Kayden Lehman MD Time Spent in preparation of Discharge (in minutes): 30 Diagnosis - Discharge Diagnosis (1) Abdominal pain Status: Resolved (2) Cachexia Status: Acute (3) Debility Status: Acute (4) Failure to thrive Status: Acute (5) Hydronephrosis concurrent with and due to calculi of kidney and ureter Status: Chronic (6) Ovarian cyst Status: Acute (7) UTI (urinary tract infection) Status: Acute (8) Vitamin B12 deficiency Status: Acute (9) Bronchial asthma Status: Chronic Priority: High Hospital Course - Lab Results Lab Results: Most Recent Lab Values WBC 4.2 K/uL (4.8-10.8) L 07/31/18 12:39 RBC 4.08 Mil/uL (3.80-5.20) 07/31/18 12:39 Hgb 11.0 g/dL (12.0-16.0) L 07/31/18 12:39 Hct 33.9 % (34.0-47.0) L 07/31/18 12:39 MCV 83.3 fl (81.0-99.0) 07/31/18 12:39 MCH 27.1 pg (27.0-31.0) 07/31/18 12:39 MCHC 32.5 g/dL (33.0-37.0) L 07/31/18 12:39 RDW 17.6 % (11.5-14.5) H 07/31/18 12:39 Plt Count 442 K/uL (130-400) H 07/31/18 12:39 MPV 9.0 fl (7.2-11.7) 07/31/18 12:39 Neut % (Auto) 46.3 % (50.0-75.0) L 07/31/18 12:39 Lymph % (Auto) 37.1 % (20.0-40.0) 07/31/18 12:39 Kidder % (Auto) 14.1 % (0.0-10.0) H 07/31/18 12:39 Eos % (Auto) 2.2 % (0.0-4.0) 07/31/18 12:39 Baso % (Auto) 0.3 % (0.0-2.0) 07/31/18 12:39 Neut # (Auto) 1.9 K/uL (1.8-7.0) 07/31/18 12:39 Lymph # (Auto) 1.5 K/uL (1.0-4.3) 07/31/18 12:39 Kidder # (Auto) 0.6 K/uL (0.0-0.8) 07/31/18 12:39 Eos # (Auto) 0.1 K/uL (0.0-0.7) 07/31/18 12:39 Baso # (Auto) 0.0 K/uL (0.0-0.2) 07/31/18 12:39 PT 11.0 Seconds (9.8-13.1) 07/31/18 12:39 INR 1.0 07/31/18 12:39 Sodium 137 mmol/l (132-148) 07/31/18 12:39 Potassium 4.3 MMOL/L (3.6-5.0) 07/31/18 12:39 Chloride 102 mmol/L (98-107) 07/31/18 12:39 Carbon Dioxide 28 mmol/L (22-30) 07/31/18 12:39 Anion Gap 11 (10-20) 07/31/18 12:39 BUN 18 mg/dl (7-17) H 07/31/18 12:39 Creatinine 0.4 mg/dl (0.7-1.2) L 07/31/18 12:39 Est GFR ( Amer) > 60 07/31/18 12:39 Est GFR (Non-Af Amer) > 60 07/31/18 12:39 Random Glucose 123 mg/dL (65-105) H 07/31/18 12:39 Calcium 9.3 mg/dL (8.4-10.2) 07/31/18 12:39 [id number] 223 mg/dL (83-199) H 07/30/18 10:01 TB Test (QFT) Nil 0.13 IU/mL 07/30/18 10:01 TB Test Mitogen - Nil 1.25 IU/mL 07/30/18 10:01 TB Test TB - Nil <0.00 IU/mL 07/30/18 10:01 TB Test (QFT) Negative (Negative) 07/30/18 10:01 - Hospital Course Hospital Course: 83 y/o female with a PMHx of HTN and asthma presents to the ED with c/o of right sided abdominal pain x 1 week. Patient reports pain has been worsening since onset and is associated with lack of appetite, poor PO intake, dysuria, frequency, nausea and one episode of shaking chills today. Denies hematuria, vomiting, fever, diarrhea and constipation. C/O loss of weight secondary to poor appetite and pain in the abdomen. She presented with renal stones and hydronephrosis. She still c/o flank pain. Will dc for procedure. Discussed with family, patent and consultants. Discharge Exam - Head Exam Head Exam: NORMAL INSPECTION - Eye Exam Eye Exam: Normal appearance - Respiratory Exam Respiratory Exam: Clear to PA & Lateral - Cardiovascular Exam Cardiovascular Exam: REGULAR RHYTHM, +S1, +S2 - GI/Abdominal Exam GI & Abdominal Exam: Normal Bowel Sounds - Extremities Exam Extremities exam: normal inspection - Neurological Exam Neurological exam: Alert, CN II-XII Intact, Oriented x3, Reflexes Normal - Psychiatric Exam Psychiatric exam: Normal Affect - Skin Skin Exam: Normal Color Discharge Plan - Follow Up Plan Condition: FAIR Disposition: Trans to Other Acute Care Hosp Instructions: Kidney Stones in Adults, Urinary Tract Infection in Women (DC)
== END 2018-08-01 06:20 | DRG 690 ==
LOC: H.TCU 15:24
PROVIDERS: ADMIT Internal Medicine; ATTEND Internal Medicine
PROC: F07Z5ZZ Bed Mobility Treatment (ICD-10-PCS; principal; 2018-07-25)
PROC: F07Z8ZZ Transfer Training Treatment (ICD-10-PCS; 2018-07-25)
PROC: F07Z9ZZ Gait Training/Functional Ambulation Treatment (ICD-10-PCS; 2018-07-25)
PROC: F08Z1FZ Dressing Techniques Treatment using Assistive, Adaptive, Supportive or Protective Equipment (ICD-10-PCS; 2018-07-25)
PROC: F08Z2FZ Grooming/Personal Hygiene Treatment using Assistive, Adaptive, Supportive or Protective Equipment (ICD-10-PCS; 2018-07-25)
PROC: F07L6GZ Therapeutic Exercise Treatment of Musculoskeletal System - Lower Back / Lower Extremity using Aerobic Endurance and Conditioning Equipment (ICD-10-PCS; 2018-07-25)
DX: N13.6 Pyonephrosis (principal); R64 Cachexia; Z68.1 Body mass index [BMI] 19.9 or less, adult; B96.20 Unspecified Escherichia coli [E. coli] as the cause of diseases classified elsewhere; R62.7 Adult failure to thrive; E78.00 Pure hypercholesterolemia, unspecified; N83.209 Unspecified ovarian cyst, unspecified side; R53.81 Other malaise; E53.8 Deficiency of other specified B group vitamins; I10 Essential (primary) hypertension; J45.909 Unspecified asthma, uncomplicated; J47.9 Bronchiectasis, uncomplicated

== ENCOUNTER 2018-08-01 06:05 | Observation (INO) | payer MEDICARE ==
[2018-08-01 06:30] VITALS: BMI 13.1
[2018-08-01] MEDS ORDERED: Lactated Ringer's 1,000 ML IV ONE (07:31)
[2018-08-01] MEDS ORDERED: Etomidate 20 mg/10ml Inj IV ONE (08:03)
[2018-08-01] MEDS ORDERED: Lidocaine 2% Jelly (Uro-Jet) ONE (08:13)
[2018-08-01] MEDS ORDERED: cefTRIAXone (Rocephin) 1 gm Inj ONE ×2 (08:13→08:14)
[2018-08-01] MEDS ORDERED: cefTRIAXone (Rocephin) 1 gm Inj IVPB ONE (08:20)
[2018-08-01] MEDS ORDERED: ePHEDrine 50 mg/ml Inj ONE (08:27)
[2018-08-01] MEDS: Albuterol HFA 90 mcg/actuation (8 g) IH SCH ×2 (09:01→16:31)
--- NOTE | 2018-08-01 12:37 | CP.PCM.HP ---
History of Present Illness - History of Present Illness History of Present Illness: 83 y/o female with a PMHx of HTN and asthma presents to the ED with c/o of right sided abdominal pain x 1 week. Patient reports pain has been worsening since onset and is associated with lack of appetite, poor PO intake, dysuria, frequ ency, nausea and one episode of shaking chills today. Denies hematuria, vomiting, fever, diarrhea and constipation. C/O loss of weight secondary to poor appetite and pain in the abdomen. She presented with renal stones and hydronephrosis. She still c/o flank pain. Patient underwent to cystoscopy. At present comfortable she c/o same urinary retention. Will observe when stable will dc home. Present on Admission - Present on Admission Any Indicators Present on Admission: No Review of Systems - Constitutional Constitutional: As Per HPI - EENT Eyes: As Per HPI - Cardiovascular Cardiovascular: As Per HPI - Respiratory Respiratory: As Per HPI - Gastrointestinal Gastrointestinal: As Per HPI - Musculoskeletal Musculoskeletal: As Per HPI - Neurological Neurological: As Per HPI - Psychiatric Psychiatric: As Per HPI Past Patient History - Past Medical History & Family History Past Medical History?: Yes - Past Social History Smoking Status: Never Smoked - CARDIAC Hx Cardiac Disorders: Yes Hx Congestive Heart Failure: No Hx Hypercholesterolemia: Yes Hx Hypertension: Yes - PULMONARY Hx Respiratory Disorders: Yes Hx Asthma: Yes Hx Bronchitis: Yes Hx Chronic Obstructive Pulmonary Disease (COPD): No - NEUROLOGICAL Hx Neurological Disorder: No HX Cerebrovascular Accident: No - HEENT Hx HEENT Problems: Yes Hx Cataracts: Yes Hx Deafness: Yes - RENAL Hx Chronic Kidney Disease: No Hx Kidney Stones: Yes (present episode) Hx Neurogenic Bladder: No Hx Pyelonephritis: Yes (present episode) Hx Renal (Kidney) Cancer: No Hx Renal Failure: No - ENDOCRINE/METABOLIC Hx Endocrine Disorders: No Hx Adrenal Cancer: No Hx Diabetes Insipidus: No Hx Diabetes Mellitus Type 1: No Hx Diabetes Mellitus Type 2: No Hx Hyperthyroidism: No Hx Hypothyroidism: No Hx Systemic Lupus Erythematosus: No - HEMATOLOGICAL/ONCOLOGICAL Hx Blood Disorders: No Hx AIDS: No Hx Hepatitis C: No Hx Human Immunodeficiency Virus (HIV): No - INTEGUMENTARY Hx Dermatological Problems: No - MUSCULOSKELETAL/RHEUMATOLOGICAL Hx Musculoskeletal Disorders: Yes Hx Arthritis: No Hx Falls: Yes Hx Fractures: Yes (sacral fx 2 yrs ago) Hx Rheumatoid Arthritis: No - GASTROINTESTINAL Hx Gastrointestinal Disorders: Yes Hx Gastroesophageal Reflux: Yes - GENITOURINARY/GYNECOLOGICAL Hx Genitourinary Disorders: No - PSYCHIATRIC Hx Psychophysiologic Disorder: No Hx Substance Use: No - SURGICAL HISTORY Hx Surgeries: Yes Hx Appendectomy: Yes Hx Coronary Artery Bypass Graft: No Hx Herniorrhaphy: Yes - ANESTHESIA Hx Anesthesia: Yes Hx Anesthesia Reactions: No Hx Malignant Hyperthermia: No Meds Allergies/Adverse Reactions: Allergies Allergy/AdvReac Type Severity Reaction Status Date / Time No Known Allergies Allergy Verified 07/25/18 15:24 Physical Exam - Constitutional Appears: Cachectic, Chronically Ill - Head Exam Head Exam: ATRAUMATIC, NORMAL INSPECTION, NORMOCEPHALIC - Eye Exam Eye Exam: Normal appearance - ENT Exam ENT Exam: Mucous Membranes Moist - Neck Exam Neck exam: Positive for: Full Rom - Respiratory Exam Respiratory Exam: Clear to Auscultation Bilateral - Cardiovascular Exam Cardiovascular Exam: REGULAR RHYTHM, +S1, +S2 - GI/Abdominal Exam GI & Abdominal Exam: Normal Bowel Sounds - Extremities Exam Extremities exam: Positive for: normal inspection - Neurological Exam Neurological exam: Alert, CN II-XII Intact, Oriented x3 - Psychiatric Exam Psychiatric exam: Normal Affect - Skin Skin Exam: Normal Color Results - Vital Signs Recent Vital Signs: Last Vital Signs Temp 97.5 F L 08/01/18 11:40 Pulse 61 08/01/18 11:40 Resp 20 08/01/18 11:40 BP 121/59 L 08/01/18 11:40 Pulse Ox 97 08/01/18 11:40 Assessment & Plan (1) Hypertensive cardiovascular disease Status: Chronic (2) Hypertensive cardiovascular disease Status: Chronic (3) COPD (chronic obstructive pulmonary disease) Status: Chronic Priority: High (4) Hydronephrosis concurrent with and due to calculi of kidney and ureter Status: Chronic - Assessment and Plan (Free Text) Plan: Observe until stable. Than dc home with f/u with Dr Lester.
[2018-08-01] MEDS ORDERED: Influenza Vaccine (5 YR UP)/PF 60 MCG/0.5 ML SYR IM ONE (16:49)
[2018-08-01] MEDS ORDERED: Pneumococcal 23-Valent Vaccine IM ONE (17:30)
[2018-08-01] MEDS: Albuterol-Ipratrop 3 mg / 0.5 (3 ml) UD INH SCH (18:05)
[2018-08-02] MEDS: Albuterol-Ipratrop 3 mg / 0.5 (3 ml) UD INH SCH ×5 (02:30→20:08)
[2018-08-02] MEDS: Albuterol HFA 90 mcg/actuation (8 g) IH SCH ×4 (04:38→21:06)
[2018-08-02 06:26] LABS: BASO # 0.1 K/uL (0.0-0.2); BASO % 0.9 % (0.0-2.0); EOS % 0.3 % (0.0-4.0); HEMOGLOBIN 10.9 g/dL (12.0-16.0); LYMPH # 1.8 K/uL (1.0-4.3); LYMPH % 25.5 % (20.0-40.0); MEAN CELL VOLUME 82.8 fl (81.0-99.0); MEAN CORPUSCULAR HEMOGLOBIN 27.1 pg (27.0-31.0); MEAN CORPUSCULAR HGB CONC 32.8 g/dL (33.0-37.0); MEAN PLATELET VOLUME 9.1 fl (7.2-11.7); MONO # 0.8 K/uL (0.0-0.8); MONO % 10.9 % (0.0-10.0); NEUT # 4.4 K/uL (1.8-7.0); NEUT % 62.4 % (50.0-75.0); RBC 4.03 Mil/uL (3.80-5.20); RED CELL DISTRIBUTION WIDTH 17.5 % (11.5-14.5); WHITE BLOOD COUNT 7.1 K/uL (4.8-10.8)
[2018-08-02 06:54] LABS: BLOOD UREA NITROGEN 24 mg/dl (7-17); CALCIUM 9.1 mg/dL (8.4-10.2); GFR NON-AFRICAN AMERICAN > 60
[2018-08-02] MEDS ORDERED: cefTRIAXone IV 1 gm in Dextros 50 ML BAG IVPB SCH (09:00)
--- NOTE | 2018-08-02 18:26 | CP.PCM.PN ---
Subjective - Date & Time of Evaluation Date of Evaluation: 08/02/18 Time of Evaluation: 17:00 - Subjective Subjective: Patient seen and examined bedside. Elderly , cachetic female complaining of severe pain to RLQ , burning with urination and frequency . Hemodynamically stable, afebrile. s/p cystoscopy with stent placement yesterday Objective - Vital Signs/Intake and Output Vital Signs (last 24 hours): Temp Pulse Resp BP Pulse Ox 97.6 F 80 18 177/89 H 99 08/02/18 15:48 08/02/18 15:48 08/02/18 15:48 08/02/18 15:48 08/02/18 15:48 - Medications Medications: Current Medications Acetaminophen (Tylenol 325mg Tab) 325 mg PO Q6 [facility] Last Admin: 08/02/18 17:09 Dose: 325 mg Albuterol (Ventolin Hfa 90 Mcg/Actuation (8 G)) 1 puff IH Q6 [facility] Last Admin: 08/02/18 10:00 Dose: 1 puff Albuterol/Ipratropium (Duoneb 3 Mg/0.5 Mg (3 Ml) Ud) 3 ml INH RQ6 [facility] Last Admin: 08/02/18 13:06 Dose: Not Given Carvedilol (Coreg) 3.125 mg PO BID [facility] Last Admin: 08/02/18 08:34 Dose: 3.125 mg Ceftriaxone Sodium 1 gm/ (Sodium Chloride) 100 mls @ 100 mls/hr IVPB DAILY [facility] Last Admin: 08/02/18 09:53 Dose: 100 mls/hr Loratadine (Claritin) 10 mg PO DAILY [facility] Last Admin: 08/02/18 08:34 Dose: 10 mg Montelukast Sodium (Singulair) 10 mg PO HS [facility] Last Admin: 08/01/18 21:01 Dose: 10 mg Phenazopyridine HCl (Pyridium) 200 mg PO Q12 [facility] - Labs Labs: 08/02/18 05:30 08/02/18 05:30 - Constitutional Appears: In Acute Distress, Cachectic, Chronically Ill - Head Exam Head Exam: ATRAUMATIC, NORMOCEPHALIC - Eye Exam Eye Exam: PERRL Pupil Exam: NORMAL ACCOMODATION - ENT Exam ENT Exam: Normal Exam - Respiratory Exam Respiratory Exam: Clear to Ausculation Bilateral, NORMAL BREATHING PATTERN. absent: Respiratory Distress - Cardiovascular Exam Cardiovascular Exam: REGULAR RHYTHM. absent: JVD - GI/Abdominal Exam GI & Abdominal Exam: Soft, Tenderness (RLQ), Normal Bowel Sounds. absent: Distended, Guarding, Rigid, Rebound - Rectal Exam Rectal Exam: Deferred - Extremities Exam Extremities Exam: Full ROM, Normal Capillary Refill, Normal Inspection. absent: Pedal Edema - Back Exam Back Exam: NORMAL INSPECTION - Neurological Exam Neurological Exam: Alert, Awake, CN II-XII Intact, Normal Gait, Oriented x3 - Psychiatric Exam Psychiatric exam: Flat Affect - Skin Skin Exam: Dry, Warm Assessment and Plan - Assessment and Plan (Free Text) Assessment: 83 y/o female with a PMHx of HTN and asthma presented to the ED with c/o of right sided abdominal pain x 1 week, dysuria , poor PO intake , frequency and nausea . She was found to have renal stone 2.2 cm stone to right renal pelvis, hydronephrosis and pyelonephritis.Urology and ID were consulted . She was treated with IV Rocephin . her urine cultures were positive for E. Coli and enterococcus faecalis Today post cystoscopy day 1 , complaining of severe RLQ abdominal pain , dysuria and frequency WBC 7 , afebrile abdomen benign 1.Renal Colic Ct abdomen showed 2.2 cm to right renal pelvis Urology consulted and following S/p Cystoscopy with stent placement # 1. with severe pain post procedure and dysuria Continue pain management continue to strain the urine Rocephin IV Started pyridium 200 mg po BID will order KUB stat 2. Pyelonephritis urine cx positive for E. Coli and Enteroccocus faecalis Received Rocephin IV 3.HTN stable 4 Asthma stable
[2018-08-03] MEDS: Albuterol-Ipratrop 3 mg / 0.5 (3 ml) UD INH SCH ×3 (01:55→13:10)
[2018-08-03] MEDS: Albuterol HFA 90 mcg/actuation (8 g) IH SCH ×4 (04:04→16:40)
[2018-08-03 07:14] LABS: HEMOGLOBIN 10.5 g/dL (12.0-16.0); MEAN CELL VOLUME 82.6 fl (81.0-99.0); MEAN CORPUSCULAR HEMOGLOBIN 27.3 pg (27.0-31.0); RBC 3.85 Mil/uL (3.80-5.20); RED CELL DISTRIBUTION WIDTH 17.5 % (11.5-14.5); WHITE BLOOD COUNT 7.1 K/uL (4.8-10.8)
[2018-08-03 07:27] LABS: BLOOD UREA NITROGEN 14 mg/dl (7-17); CALCIUM 8.9 mg/dL (8.4-10.2); GFR NON-AFRICAN AMERICAN > 60
[2018-08-03 08:42] VITALS: BP 160/77; PULSE 79; RESP 20; TEMP 97.5; O2SAT 100
--- NOTE | 2018-08-03 09:03 | RAD ---
Date of service: 08/02/2018 HISTORY: r/o free air COMPARISON: CT scan of the abdomen pelvis dated 07/22/2018 FINDINGS: BOWEL: Prominent amount of retained colonic stool. No obstruction. No gross free air. BONES: Degenerative changes. OTHER FINDINGS: Placement of right double-J ureteral stent. 2.1 cm right renal pelvic calculus unchanged. IMPRESSION: Interval placement of right double-J ureteral stent. No gross evidence of intraperitoneal free air. Prominent amount of retained colonic stool.
--- NOTE | 2018-08-03 12:14 | RAD ---
Date of service: 08/01/2018 PROCEDURE: Intraoperative Fluoroscopy. HISTORY: CYSTO: RT URETERAL STENT PLACEMENT FINDINGS: Fluoroscopic assistance was provided for retrograde study and right stent placement. Please refer to the operative report from [facility]. Total fluoroscopic time (continuous mode) utilized during the procedure 11.9 (seconds).
--- NOTE | 2018-08-03 12:40 | CP.PCM.DIS ---
Provider - Provider Date of Admission: 08/01/18 09:45 Attending physician: Kayden Lehman MD Primary care physician: Kayden Lehman MD Consults: Dr Lester Time Spent in preparation of Discharge (in minutes): 25 Diagnosis - Discharge Diagnosis (1) Pyelonephritis Status: Acute Comment: continue Cipro and Pyridium. follow up with Dr Lester (2) HTN (hypertension) Status: Chronic Priority: Medium Comment: stable. continue Carvedilol (3) Bronchial asthma Status: Inactive Priority: High Hospital Course - Lab Results Lab Results: Most Recent Lab Values WBC 7.1 K/uL (4.8-10.8) 08/03/18 05:30 RBC 3.85 Mil/uL (3.80-5.20) 08/03/18 05:30 Hgb 10.5 g/dL (12.0-16.0) L 08/03/18 05:30 Hct 31.8 % (34.0-47.0) L 08/03/18 05:30 MCV 82.6 fl (81.0-99.0) 08/03/18 05:30 MCH 27.3 pg (27.0-31.0) 08/03/18 05:30 MCHC 33.0 g/dL (33.0-37.0) 08/03/18 05:30 RDW 17.5 % (11.5-14.5) H 08/03/18 05:30 Plt Count 334 K/uL (130-400) 08/03/18 05:30 MPV 9.1 fl (7.2-11.7) 08/02/18 05:30 Neut % (Auto) 62.4 % (50.0-75.0) 08/02/18 05:30 Lymph % (Auto) 25.5 % (20.0-40.0) 08/02/18 05:30 Osborne % (Auto) 10.9 % (0.0-10.0) H 08/02/18 05:30 Eos % (Auto) 0.3 % (0.0-4.0) 08/02/18 05:30 Baso % (Auto) 0.9 % (0.0-2.0) 08/02/18 05:30 Neut # (Auto) 4.4 K/uL (1.8-7.0) 08/02/18 05:30 Lymph # (Auto) 1.8 K/uL (1.0-4.3) 08/02/18 05:30 Osborne # (Auto) 0.8 K/uL (0.0-0.8) 08/02/18 05:30 Eos # (Auto) 0.0 K/uL (0.0-0.7) 08/02/18 05:30 Baso # (Auto) 0.1 K/uL (0.0-0.2) 08/02/18 05:30 Sodium 132 mmol/l (132-148) 08/03/18 05:30 Potassium 3.5 MMOL/L (3.6-5.0) L 08/03/18 05:30 Chloride 97 mmol/L (98-107) L 08/03/18 05:30 Carbon Dioxide 27 mmol/L (22-30) 08/03/18 05:30 Anion Gap 12 (10-20) 08/03/18 05:30 BUN 14 mg/dl (7-17) 08/03/18 05:30 Creatinine 0.4 mg/dl (0.7-1.2) L 08/03/18 05:30 Est GFR ( Amer) > 60 08/03/18 05:30 Est GFR (Non-Af Amer) > 60 08/03/18 05:30 Random Glucose 92 mg/dL (65-105) 08/03/18 05:30 Calcium 8.9 mg/dL (8.4-10.2) 08/03/18 05:30 - Hospital Course Hospital Course: 83 yo female with history of HTN and Asthma came in because of right sided abdominal pain accompanied with dysuria. Work up showed right hydronephrosis and pyelonephritis and stone on the right renal pelvis. Patient was treated with IV Rocephin and urology was consulted. Cystoscopy and stent was placed and patient's condition. She was discharged in stable condition and advised to continue PO Cipro and Pyridium. She will follow up with Dr Lester on Saturday. Discharge Exam - Head Exam Head Exam: ATRAUMATIC, NORMOCEPHALIC - Eye Exam Eye Exam: absent: Scleral icterus - ENT Exam ENT Exam: Mucous Membranes Moist - Respiratory Exam Respiratory Exam: absent: Rhonchi, Wheezes, Respiratory Distress - Cardiovascular Exam Cardiovascular Exam: REGULAR RHYTHM, +S1, +S2 - GI/Abdominal Exam GI & Abdominal Exam: Soft. absent: Tenderness - Rectal Exam Rectal Exam: Deferred - Neurological Exam Neurological exam: Alert, Oriented x3 - Psychiatric Exam Psychiatric exam: Normal Affect - Skin Skin Exam: Dry, Intact Discharge Plan - Discharge Medications Prescriptions: Ciprofloxacin [Cipro] 500 mg PO BID #14 tab Ciprofloxacin HCl [Cipro] 500 mg PO BID #14 tab Phenazopyridine HCl [Pyridium] 200 mg PO BID #14 tablet Phenazopyridine HCl [Pyridium] 200 mg PO BID #14 tablet traMADol [Ultram] 50 mg PO Q8 PRN #12 tab PRN Reason: Pain, Moderate (4-7) - Follow Up Plan Condition: GOOD Disposition: HOME/ ROUTINE Referrals: Kayden Lehman MD [Primary Care Provider] -
--- NOTE | 2018-08-19 22:48 | OP ---
PROCEDURE DATE: 08/01/2018 PREOPERATIVE DIAGNOSIS: Right renal colic secondary to right obstructing renal calculus. POSTOPERATIVE DIAGNOSIS: Right renal colic secondary to right obstructing renal calculus. PROCEDURE PERFORMED: Cystoscopy with right double-J stent placement under general anesthesia. DESCRIPTION OF PROCEDURE: The patient was placed on the operating room table in dorsal lithotomy position. The area of the groin was draped and prepped. At this time, using a #21 cystoscope, I entered into the bladder atraumatically. I identified the right ureteral orifice and over that, I inserted a sensor wire to the level of the kidney stone and beyond. Once I could see that on the fluoroscopic evaluation, then I inserted a [id number] multi-length double-J stent into fluoroscopic good position. Once this was done, cystoscope was removed. The stent is in place. The patient was taken from the operating room in good condition. Jamel Lester MD
--- NOTE | 2018-08-20 09:57 | PQF ---
PROVIDER RESPONSE TEXT: BMI 13 , cachexia REVIEWER QUERY TEXT: Documentation Clarification Your help is requested in clarifying the following clinical documentation, if you can please further specify in the medical record and discharge summary. Would you please clarify if you concur with the BMI of 13.1 or other explanation of findings. The patient's Clinical Indicators include: The patient's clincical indicators include: Query created by: Eloise Owusu on 08/20/2018 8:16 AM Electronically signed by: 08/20/2018 9:54 AM
--- NOTE | 2018-08-20 09:57 | PQF ---
PROVIDER RESPONSE TEXT: Provider was unable to determine a response for this query. REVIEWER QUERY TEXT: Asthma Specificity and Type Asthma is documented in the Medical Record. Please specify the type and severity of asthma and indic ate if this is associated with exacerbation or status asthmaticus. Such as: -- Mild intermittent -- Mild persistent -- Moderate persistent -- Severe persistent -- Exercise induced bronchospasm -- Cough variant asthma -- Other, please specify The patient's Clinical Indicators include: Documentation of history of asthma stable. Medication: Melissa Phillips Query created by: Eloise Owusu on 08/20/2018 8:16 AM Electronically signed by: 08/20/2018 9:54 AM
== END 2018-08-03 18:55 | disposition home or self-care (01) ==
LOC: H.OPSURG 06:05 → H.ERHOLD 09:45 → INTOOBSV 09:45 → H.MEDSURG1 14:41
PROVIDERS: ADMIT Internal Medicine; ATTEND Internal Medicine
PROC: 0T768DZ Dilation of Right Ureter with Intraluminal Device, Via Natural or Artificial Opening Endoscopic (ICD-10-PCS; principal; 2018-08-01 07:45)
DX: N13.6 Pyonephrosis (principal); R64 Cachexia; Z68.1 Body mass index [BMI] 19.9 or less, adult; I10 Essential (primary) hypertension; J45.909 Unspecified asthma, uncomplicated; B96.20 Unspecified Escherichia coli [E. coli] as the cause of diseases classified elsewhere
CPT/HCPCS: 36415; 52332; 74018; 80048; 85025; 85027; 94640; C2617; G0378; J0696; J2001; J3010; J7120